=== PATIENT | male | born 1970 | race Caucasian/White ===

== ENCOUNTER 2017-07-13 13:44 | Inpatient (IN) | payer SELFPAY ==
[~2017-07-13] VITALS: Ht 182.9 cm; Wt 104.5 kg
[~2017-07-13 13:44] MED LIST: NAPR500 PO; Z.0.NO CURRENT MEDS
[2017-07-13 14:05] VITALS: BP 131/81; PULSE 82; RESP 18; TEMP 97.9; O2SAT 96
--- NOTE | 2017-07-13 14:09 | PD ---
Physical Exam Date Seen by Provider: Jul 13, 2017 Time Seen by Provider: 14:07 Narrative 46 yo female here for evaluation of leg pain and N/V. Has had "the flu" for a week. Feels weak because of this. Per patient history of testicular cancer. Pain to legs bilaterally. No injuries. Vomiting. Per EVAC report he was forcing himself to vomit. Vitals stable in triage. Awaiting bed placement. Data Data Last Documented VS Vital Signs Date Time Temp Pulse Resp B/P (MAP) Pulse Ox O2 Delivery O2 Flow Rate FiO2 07/13/17 14:05 97.9 82 18 131/81 (98) 96 Room Air [facility] Medical Record Reviewed: Yes Supervised Visit with RAJAT: No Abdulaziz Chopra Jul 13, 2017 14:09
[2017-07-13] MEDS ORDERED: SODIUM CHLOR 0.9% 1000 ML INJ 1,000 ML IV SCH (14:54)
[2017-07-13] MEDS ORDERED: SERT-129 PO (14:59)
[2017-07-13 15:00] VITALS: RESP 17; O2SAT 98
[2017-07-13] MEDS ORDERED: KETOROLAC TROMETHAMINE 30 MG/ML (IVP) VIAL IVP ONE (15:00)
[2017-07-13] MEDS ORDERED: SODIUM CHLORIDE 0.9% FLUSH 10 ML FLUSH IV FLUSH PRN (15:00)
[2017-07-13] MEDS ORDERED: ONDANSETRON HCL 4 MG/2 ML VIAL IVP ONE (15:00)
[2017-07-13 15:07] VITALS: BP 119/78; PULSE 78; RESP 17; TEMP 97.9; O2SAT 99
--- NOTE | 2017-07-13 15:15 | PD ---
HPI Chief Complaint: Pain: Acute or Chronic Time Seen by Provider: 14:51 Travel History International Travel<30 days: No Contact w/Intl Traveler<30days: No Traveled to known affect area: No History of Present Illness HPI 46 yo male here for evaluation of leg pain and N/V. Has had "the flu" for a week. Feels weak because of this. Per patient history of testicular cancer treated with removal of both testicles 817. Patient complaining of generalized Pain to legs bilaterally. No injuries. Vomiting. Per EVAC report he was forcing himself to vomit. Vitals stable in triage. Pain is currently 8 out of 10. He denies abdominal pain at this time but does state nausea, and reports vomiting in the bathroom although this was not witnessed. He denies urinary symptoms. He denies chest pain or shortness of breath. Patient denies IV drug use. He states occasional marijuana use. He has no known drug allergies. PFSH Past Medical History Asthma: Yes (as child) Anxiety: Yes Depression: Yes Cancer: Yes (testicular) Chemotherapy: Yes Diabetes: No Diminished Hearing: No Musculoskeletal: Yes (PREVIOUS BACK INJURY 1994) Psychiatric: Yes Tetanus Vaccination: > 5 Years Influenza Vaccination: No Past Surgical History Genitourinary Surgery: Yes (testicles removed) Social History Alcohol Use: Yes (OCASSIONALLY) Tobacco Use: Yes (2 ppd) Substance Use: No Allergies-Medications (Allergen,Severity, Reaction): Coded Allergies: No Known Allergies (Verified , 07/13/17) Reported Meds & Prescriptions Reported Meds & Active Scripts Active Reported Sertraline (Sertraline HCl) 100 Mg Tab 100 Mg PO DAILY Review of Systems Except as stated in HPI: all other systems reviewed are Neg General / Constitutional: Positive: Fever (last week) Eyes: No: Visual changes HENT: Positive: Lightheadedness, No: Headaches, Vertigo, Sore Throat, Rhinitis , Rhinorrhea, Congestion, Nosebleed, Neck Stiffness, Neck Pain, Dental Difficulties, Earache Cardiovascular: No: Chest Pain or Discomfort Respiratory: No: Cough, Shortness of Breath, Wheezing Gastrointestinal: Positive: Nausea, Vomiting, No: Diarrhea, Abdominal Pain Genitourinary: No: Dysuria Musculoskeletal: Positive: Myalgias, Arthralgias, Pain, No: Limited ROM, Edema Skin: No Rash Neurologic: No: Weakness Psychiatric: No: Depression Endocrine: No: Polydipsia Hematologic/Lymphatic: No: Easy Bruising Physical Exam Narrative GENERAL: Patient appears in moderate distress. SKIN: Warm and dry. Normal color. Somewhat decreased turgor. HEAD: Atraumatic. Normocephalic. EYES: Pupils equal and round. No scleral icterus. No injection or drainage. ENT: No nasal bleeding or discharge. Mucous membranes pink and dry. TMs are clear. Pharynx is clear. Airway is patent. NECK: Trachea midline. Supple and nontender. CARDIOVASCULAR: Regular rate and rhythm. No murmurs gallops or rubs appreciated. RESPIRATORY: No accessory muscle use. Clear to auscultation. Breath sounds equal bilaterally. GASTROINTESTINAL: Abdomen soft, non-tender, nondistended. Hepatic and splenic margins not palpable. MUSCULOSKELETAL: Extremities without clubbing, cyanosis, or edema. No obvious deformities. No edema. No significant increased pain with palpation. Negative straight leg raise pain bilaterally. NEUROLOGICAL: Awake and alert. No obvious cranial nerve deficits. Motor grossly within normal limits. Five out of 5 muscle strength in the arms and legs. Normal speech. PSYCHIATRIC: Appropriate mood and affect; insight and judgment normal. Data Data Last Documented VS Vital Signs Date Time Temp Pulse Resp B/P (MAP) Pulse Ox O2 Delivery O2 Flow Rate FiO2 07/13/17 16:43 97.8 86 16 131/72 (91) 99 Room Air Orders Orders Complete Blood Count With Diff (07/13/17 14:54) Comprehensive Metabolic Panel (07/13/17 14:54) Lactic Acid (07/13/17 14:54) Urinalysis - C+S If Indicated (07/13/17 14:54) Iv Access Insert/Monitor (07/13/17 14:54) Ecg Monitoring (07/13/17 14:54) Oximetry (07/13/17 14:54) NPO (07/13/17 14:54) Ondansetron Inj (Zofran Inj) (07/13/17 15:00) Sodium Chlor 0.9% 1000 Ml Inj (Ns 1000 M (07/13/17 14:54) Sodium Chloride 0.9% Flush (Ns Flush) (07/13/17 15:00) Ketorolac Inj (Toradol Inj) (07/13/17 15:00) Urine Culture (07/13/17 16:00) Lipase (07/13/17 16:27) Potassium Chloride (Kcl) (07/13/17 16:30) Us Abdomen Gallbladder (07/13/17 ) Piperacil-Tazo 4.5 Gm Premix (Zosyn 4.5 (07/13/17 18:15) Hepatitis Profile (07/13/17 18:11) Tylenol (Acetaminophen) (07/13/17 18:11) Labs Laboratory Tests Test 07/13/17 11:20 07/13/17 15:20 07/13/17 16:00 Lipase 148 U/L White Blood Count 4.7 TH/MM3 Red Blood Count 5.02 MIL/MM3 Hemoglobin 16.2 GM/DL Hematocrit 46.6 % Mean Corpuscular Volume 92.8 FL Mean Corpuscular Hemoglobin 32.2 PG Mean Corpuscular Hemoglobin Concent 34.7 % Red Cell Distribution Width 12.7 % Platelet Count 61 TH/MM3 Mean Platelet Volume 9.2 FL CBC Comment AUTO DIFF Differential Total Cells Counted 100 Neutrophils % (Manual) 45 % Band Neutrophils % 39 % Lymphocytes % 3 % Monocytes % 4 % Other Cells % 5 % Neutrophils # (Manual) 4.1 TH/MM3 Metamyelocytes 2 % Promyelocytes 2 % Differential Comment FINAL DIFF MANUAL Toxic Vacuolation PRESENT Platelet Estimate LOW Platelet Morphology Comment NORMAL Blood Urea Nitrogen 13 MG/DL Creatinine 0.85 MG/DL Random Glucose 111 MG/DL Total Protein 6.4 GM/DL Albumin 3.2 GM/DL Calcium Level 8.6 MG/DL Alkaline Phosphatase 158 U/L Aspartate Amino Transf (AST/SGOT) 319 U/L Alanine Aminotransferase (ALT/SGPT) 300 U/L Total Bilirubin 3.5 MG/DL Sodium Level 133 MEQ/L Potassium Level 3.4 MEQ/L Chloride Level 98 MEQ/L Carbon Dioxide Level 24.3 MEQ/L Anion Gap 11 MEQ/L Estimat Glomerular Filtration Rate 97 ML/MIN Lactic Acid Level 1.8 mmol/L Urine Color DARK-BROWN Urine Turbidity HAZY Urine pH 6.0 Urine Specific [place] 1.036 Urine Protein 30 mg/dL Urine Glucose (UA) NEG mg/dL Urine Ketones NEG mg/dL Urine Occult Blood NEG Urine Nitrite NEG Urine Bilirubin MOD Urine Urobilinogen 4.0 MG/DL Urine Leukocyte Esterase TRACE Urine RBC LESS THAN 1 /hpf Urine WBC 8 /hpf Urine Bacteria RARE /hpf Urine Hyaline Casts 4 /lpf Urine Mucus MANY /lpf Microscopic Urinalysis Comment CULTURE INDICATED MDM Medical Decision Making Medical Screen Exam Complete: Yes Emergency Medical Condition: Yes Medical Record Reviewed: Yes Differential Diagnosis Lower extremity pain. Electrolyte imbalance. Leg cramps. Dehydration. Narrative Course Patient is medically stable at time of exam. Labs ordered including CBC, CMP, lactic acid, and urinalysis. IV access is obtained patient is given 30 mg Toradol IV as well as 4 mg Zofran IV. Patient is given 1000 mg normal saline bolus. CBC is unremarkable except for platelets were 61 and 39% bandemia. Chemistry is significant for sodium 133, potassium 3.4, glucose 111, total bilirubin was 3.5, AST is 319, and ALT is 300, alkaline phosphatase is 158, is 3.2, lipase is normal 148. Lactic acid is 1.8. Urinalysis is dark brown and hazy with a specific gravity 1.036, urine protein is 30,, and urine urobilinogen is 4.0. There is a trace of leukocyte esterase, rare bacteria and WBCs are 8 under high-power field. Patient is discussed with Dr. Bejarano who sees the patient as well, who recommends an ultrasound of the gallbladder. Patient is given potassium 20 mEq by mouth. Ultrasound of THE GALLBLADDER SHOWS: GALLBLADDER: Markedly abnormal in appearance with moderately thickened edematous gallbladder wall diffusely. No definite mobile stones. Patient discussed with Dr. Gaxiola who recommends touching base with the general surgeon. Patient discussed with Dr. Mark Saez, who recommends a hepatitis panel which is added, acetaminophen level is also added. Also placed to the hospitalist for admission. Diagnosis Primary Impression: Bandemia Additional Impressions: Elevated LFTs Gall bladder inflammation Admitting Information Admitting Physician Requests: Observation Condition: Stable Heron Maravilla Jul 13, 2017 15:15
[2017-07-13 15:38] LABS: HEMATOCRIT 46.6 % (39.0-51.0); MEAN CELL VOLUME 92.8 FL (80.0-100.0); MEAN CORPUSCULAR HEMOGLOBIN 32.2 PG (27.0-34.0); MEAN CORPUSCULAR HGB CONC 34.7 % (32.0-36.0); PLATELET COUNT 61 TH/MM3 (150-450); RED BLOOD COUNT 5.02 MIL/MM3 (4.50-5.90); RED CELL DISTRIBUTION WIDTH 12.7 % (11.6-17.2); WHITE BLOOD COUNT 4.7 TH/MM3 (4.0-11.0)
[2017-07-13 15:39] LABS: HEMO FLAGS AUTO DIFF
[2017-07-13 16:11] LABS: ALKALINE PHOSPHATASE 158 U/L (45-117); ALT (GPT) 300 U/L (12-78); TOTAL BILIRUBIN ADULT 3.5 MG/DL (0.2-1.0)
[2017-07-13 16:13] LABS: ANION GAP 11 MEQ/L (5-15); AST (GOT) 319 U/L (15-37); BICARBONATE 24.3 MEQ/L (21.0-32.0); BLOOD UREA NITROGEN 13 MG/DL (7-18); CHLORIDE 98 MEQ/L (98-107); GLOMERULAR FILTRATION RATE 97 ML/MIN (>89); POTASSIUM 3.4 MEQ/L (3.5-5.1); SODIUM (NA) 133 MEQ/L (136-145)
[2017-07-13 16:21] LABS: BACTERIA, URINE RARE /hpf; BLOOD, URINE NEG (NEG); COMMENT (UR) CULTURE INDICATED; CULTURE IF INDICATED CULTURE INDICATED; GLUCOSE,URINE NEG (NEG); HYALINE CAST, URINE 4 /lpf (RARE); KETONE, URINE NEG (NEG); MUCUS URINE MANY /lpf (OCC); NITRITE,URINE NEG (NEG)
[2017-07-13 16:24] LABS: URINE COLOR DARK-BROWN (YELLW/STRAW)
[2017-07-13] MEDS ORDERED: POTASSIUM CHLORIDE 20 MEQ CONTROLLED RELEASE TAB PO ONE (16:30)
[2017-07-13 16:43] VITALS: BP 131/72; PULSE 86; RESP 16; TEMP 97.8; O2SAT 99
[2017-07-13 16:46] LABS: BANDS 39 % (0-6); METAMYELOCYTES 2 % (0-1); NEUTROPHIL # MANUAL DIFF 4.1 TH/MM3 (1.8-7.7); POLYS (SEG NEUTROPHILS) 45 % (16-70); PROMYELOCYTES 2 % (0-0); SCAN/DIFF FINAL DIFF MANUAL; WBC DIFF SAMPLE 100
[2017-07-13 16:48] LABS: PLATELET ESTIMATE SMEAR LOW (NORMAL); PLATELET MORPHOLOGY NORMAL (NORMAL)
[2017-07-13 16:54] LABS: TOXIC VACUOLATION PRESENT (NONE SEEN)
--- NOTE | 2017-07-13 17:31 | RADRPT ---
EXAM DATE/TIME: 07/13/2017 16:55 [facility] COMPARISON: No previous studies available for comparison. INDICATIONS : Nausea/Vomiting. MEDICAL HISTORY : Asthma. Anxiety. Depression. Testicular cancer. Chemotherapy. SURGICAL HISTORY : Testicles removed. Right femur fracture/pinned. ENCOUNTER: Initial ACUITY: 4-6 days PAIN SCORE: 6/10 LOCATION: Right upper quadrant MEASUREMENTS: LIVER: 19.2 cm length COMMON DUCT: 4 mm RIGHT KIDNEY: 11.6 x 4.7 x 4.7 cm FINDINGS: LIVER: Normal echotexture without focal lesion or ductal dilatation. COMMON DUCT: No intraluminal mass or stone visualized. GALLBLADDER: Markedly abnormal in appearance with moderately thickened edematous gallbladder wall diffusely. No de finite mobile stones. PANCREAS: The visualized portions are within normal limits. RIGHT KIDNEY: No evidence of hydronephrosis, stone, or mass. CONCLUSION: Markedly abnormal gallbladder appearance. Hayden Garcia MD on July 13, 2017 at 17:26 Board Certified Radiologist. This report was verified electronically.
[2017-07-13] MEDS ORDERED: PIPERACIL-TAZO 4.5 GM PREMIX 100 ML IV ONE (18:15)
[2017-07-13] MEDS ORDERED: GADODIAMIDE PF 287 MG/ML 20 ML VIAL (for RAD MRI) IV PUSH ONE (18:24)
[2017-07-13 19:58] VITALS: BP 124/80; PULSE 70; RESP 16; O2SAT 98
[2017-07-13] MEDS ORDERED: NALOXONE HCL 0.4 MG/ML AMP IV PUSH PRN (20:15)
--- NOTE | 2017-07-13 21:36 | HHI.HP ---
[facility] Admission Diagnosis Bandemia/Elevated LFT's/Inflammed Gallbladder Diagnoses: (1) Cholecystitis (2) Elevated LFTs (3) Bandemia Chief Complaint: Leg pain Travel History International Travel<30 Days: No Contact w/Intl Traveler <30 Da: No Traveled to Known Affected Are: No History of Present Illness Written by Joyce Lam, acting as scribe for Dr. Hercules on 07/13/17 at 21:36. The patient is seen in the CDU. He states that he came into the ED for evaluation of severe bilateral lower extremity pain: pain goes from knees down bones and into ankles. The patient reports pain has been present since Tuesday. He denies any trauma. Chills, cold, diaphoretic started Tuesday and was present on ambulance. Denies any measured temperatures. Nausea with vomiting 10 - 12 times per day since Tuesday. Denies black colored emesis. He reports red emesis. Diarrhea started 3 days ago - black in color. Denies taking blood thinners or aspirin. He says he took Advil PM last night only. He has also been treating himself with Nyquil. Denies dysuria. He reports dark tea-colored urine. Patient states he's been having right upper abdominal pain. Denies chest pain, shortness of breath, or dizziness. Review of Systems Except as stated in HPI: all other systems reviewed are Neg Past Family Social History Past Medical History Hepatitis - he is not sure if it's B or C Testicular CA - both testicles removed age 17 y/o Depression Denies hypertension, DM, CAD, CHF, kidney disease, DVT, PE, CVA, seizures, thyroid problems Past Surgical History Testicle removed age 17, 2 months later, the other testicle was removed . Reported Medications Sertraline 100 mg qday for depression - has been taking for 4 years . Allergies: Coded Allergies: No Known Allergies (Verified , 07/13/17) Active Ordered Medications Current Medications Ondansetron HCl (Zofran Inj) 4 mg ONCE ONCE IVP Last administered on 15:09; Start 07/13/17 at 15:00; Stop 07/13/17 at 15:01; Status DC Sodium Chloride 1,000 ml @ 1,000 mls/hr Q1H IV Last administered on 07/13/17 15:09; Start 07/13/17 at 14:54; Stop 07/13/17 at 15:53; Status DC Sodium Chloride (NS Flush) 2 ml UNSCH PRN IV FLUSH FLUSH AFTER USING IV ACCESS Last administered on 07/13/17 15:08; Start 07/13/17 at 15:00 Ketorolac Tromethamine (Toradol Inj) 30 mg ONCE ONCE IVP Last administered on 07/13/17 15:08; Start 07/13/17 at 15:00; Stop 07/13/17 at 15:01; Status DC Potassium Chloride (KCl) 20 meq ONCE ONCE PO Last administered on 07/13/17 16 :40; Start 07/13/17 at 16:30; Stop 07/13/17 at 16:31; Status DC Piperacillin Sod/ Tazobactam Sod 100 ml @ 200 mls/hr ONCE ONCE IV Last administered on 07/13/17 18:10; Start 07/13/17 at 18:15; Stop 07/13/17 at 18:44 ; Status DC Naloxone HCl (Narcan Inj) 0.4 mg UNSCH PRN IV PUSH SEE LABEL COMMENTS; Start 07/13/17 at 20:15 Piperacillin Sod/ Tazobactam Sod 100 ml @ 200 mls/hr Q6H IV ; Start 07/14/17 at 00:00 . Family History Cancer - cousin with leukemia, testicular Maternal GM with breast CA . Social History Tobacco: 1 PPD Alcohol: occasional Illicit Drugs: marijuana on occasion . Physical Exam Vital Signs Vital Signs Date Time Temp Pulse Resp B/P (MAP) Pulse Ox O2 Delivery O2 Flow Rate FiO2 07/13/17 20:50 07/13/17 19:58 70 16 124/80 (95) 98 Room Air 07/13/17 16:43 97.8 86 16 131/72 (91) 99 Room Air 07/13/17 16:08 17 07/13/17 15:07 97.9 78 17 119/78 (92) 99 07/13/17 15:00 17 98 Room Air 07/13/17 15:00 86 17 07/13/17 14:05 97.9 82 18 131/81 (98) 96 Room Air Physical Exam GENERAL: This is a jaundiced male patient, in no apparent distress. SKIN: No rashes. Cool and dry. Patient jaundiced. HEAD: Atraumatic. Normocephalic. EYES: No scleral icterus. No injection or drainage. ENT: Nose without bleeding, purulent drainage. Airway patent. NECK: Trachea midline. No JVD. CARDIOVASCULAR: Regular rate and rhythm without murmurs, gallops, or rubs. RESPIRATORY: Clear to auscultation. Breath sounds equal bilaterally. No wheezes , rales, or rhonchi. GASTROINTESTINAL: Abdomen soft, tender right upper quadrant, nondistended. No guarding. MUSCULOSKELETAL: Extremities without clubbing, cyanosis, or edema. No calf tenderness. NEUROLOGICAL: Awake and alert. Motor and sensory grossly within normal limits. Normal speech. . Laboratory Laboratory Tests Test 07/13/17 11:20 07/13/17 15:20 07/13/17 16:00 Lipase 148 White Blood Count 4.7 Red Blood Count 5.02 Hemoglobin 16.2 Hematocrit 46.6 Mean Corpuscular Volume 92.8 Mean Corpuscular Hemoglobin 32.2 Mean Corpuscular Hemoglobin Concent 34.7 Red Cell Distribution Width 12.7 Platelet Count 61 Mean Platelet Volume 9.2 CBC Comment AUTO DIFF Differential Total Cells Counted 100 Neutrophils % (Manual) 45 Band Neutrophils % 39 Lymphocytes % 3 Monocytes % 4 Other Cells % 5 Neutrophils # (Manual) 4.1 Metamyelocytes 2 Promyelocytes 2 Differential Comment FINAL DIFF MANUAL Toxic Vacuolation PRESENT Platelet Estimate LOW Platelet Morphology Comment NORMAL Blood Urea Nitrogen 13 Creatinine 0.85 Random Glucose 111 Total Protein 6.4 Albumin 3.2 Calcium Level 8.6 Alkaline Phosphatase 158 Aspartate Amino Transf (AST/SGOT) 319 Alanine Aminotransferase (ALT/SGPT) 300 Total Bilirubin 3.5 Sodium Level 133 Potassium Level 3.4 Chloride Level 98 Carbon Dioxide Level 24.3 Anion Gap 11 Estimat Glomerular Filtration Rate 97 Lactic Acid Level 1.8 Acetaminophen Level 4.6 Urine Color DARK-BROWN Urine Turbidity HAZY Urine pH 6.0 Urine Specific [place] 1.036 Urine Protein 30 Urine Glucose (UA) NEG Urine Ketones NEG Urine Occult Blood NEG Urine Nitrite NEG Urine Bilirubin MOD Urine Urobilinogen 4.0 Urine Leukocyte Esterase TRACE Urine RBC LESS THAN 1 Urine WBC 8 Urine Bacteria RARE Urine Hyaline Casts 4 Urine Mucus MANY Microscopic Urinalysis Comment CULTURE INDICATED Date/Time Source Procedure Growth Status 07/13/17 16:00 Urine Clean Catch Urine Culture Pending Worksheet Result Diagram: 07/13/17 1520 07/13/17 1520 Imaging Gallbladder ultrasound: markedly abnormal gallbladder appearance with moderately thickened diffusely edematous gallbladder wall. No definite mobile stones. Caprini VTE Risk Assessment Caprini VTE Risk Assessment: Mod/High Risk (score >= 2) Caprini Risk Assessment Model Point Value = 1 Point Value = 2 Point Value = 3 Point Value = 5 Age 41-60 Minor surgery BMI > 25 kg/m2 Swollen legs Varicose veins or History of unexplained or recurrent spontaneous Oral contraceptives or hormone replacement Sepsis (< 1 month) Serious lung disease, including pneumonia (< 1 month) Abnormal pulmonary function Acute myocardial infarction Congestive heart failure (< 1 month) History of inflammatory bowel disease Medical patient at bed rest Age 61-74 Arthroscopic surgery Major open surgery (> 45 min) Laparoscopic surgery (> 45 min) Malignancy Confined to bed (> 72 hours) Immobilizing plaster cast Central venous access Age >= 75 History of VTE Family history of VTE Factor V Leiden Prothrombin [id number] Lupus anticoagulant Anticardiolipin antibodies Elevated serum homocysteine Heparin-induced thrombocytopenia Other congenital or acquired thrombophilia Stroke (< 1 month) Elective arthroplasty Hip, pelvis, or leg fracture Acute spinal cord injury (< 1 month) Prophylaxis Regimen Total Risk Factor Score Risk Level Prophylaxis Regimen 0-1 Low Early ambulation 2 Moderate Order ONE of the following: *Sequential Compression Device (SCD) *Heparin 5000 units SQ BID 3-4 Higher Order ONE of the following medications: *Heparin 5000 units SQ TID *Enoxaparin/Lovenox 40 mg SQ daily (WT < 150 kg, CrCl > 30 mL/min) *Enoxaparin/Lovenox 30 mg SQ daily (WT < 150 kg, CrCl > 10-29 mL/min) *Enoxaparin/Lovenox 30 mg SQ BID (WT < 150 kg, CrCl > 30 mL/min) AND/OR *Sequential Compression Device (SCD) 5 or more Highest Order ONE of the following medications: *Heparin 5000 units SQ TID (Preferred with Epidurals) *Enoxaparin/Lovenox 40 mg SQ daily (WT < 150 kg, CrCl > 30 mL/min) *Enoxaparin/Lovenox 30 mg SQ daily (WT < 150 kg, CrCl > 10-29 mL/min) *Enoxaparin/Lovenox 30 mg SQ BID (WT < 150 kg, CrCl > 30 mL/min) AND *Sequential Compression Device (SCD) Assessment and Plan Problem List: (1) Cholecystitis ICD Code: K81.9 - Cholecystitis, unspecified (2) Elevated LFTs ICD Code: R79.89 - Other specified abnormal findings of blood chemistry Status: Acute (3) Upper GI bleed ICD Code: K92.2 - Gastrointestinal hemorrhage, unspecified (4) Bandemia ICD Code: D72.825 - Bandemia Status: Acute (5) UTI (urinary tract infection) ICD Code: N39.0 - Urinary tract infection, site not specified (6) Thrombocytopenia ICD Code: D69.6 - Thrombocytopenia, unspecified (7) Hypokalemia ICD Code: E87.6 - Hypokalemia (8) Hyponatremia ICD Code: E87.1 - Hypo-osmolality and hyponatremia (9) Lower extremity pain, anterior ICD Code: M79.606 - Pain in leg, unspecified (10) Depression ICD Code: F32.9 - Major depressive disorder, single episode, unspecified Status: Chronic (11) Tobacco abuse ICD Code: Z72.0 - Tobacco use Assessment and Plan 46 y/o male who presented to ED on 07/13/17 for evaluation of leg pain and was found to have symptoms and imaging c/w cholecystitis. Cholecystitis - suspected Elevated LFTs - low acetaminophen level on admission - Gallbladder ultrasound: markedly abnormal gallbladder appearance with moderately thickened diffusely edematous gallbladder wall. No definite mobile stones. - general surgery consultation - Hydromorphone 0.2 mg IV q4h PRN pain - Zofran 4 mg IV q6h PRN nausea - NPO after midnight for surgery; may have ice chips this evening; discussed with nursing Possible upper GI bleeding with N/V - patient reports red emesis and black stool - consult gastroenterology - also patient may have liver cirrhosis - has history of hepatitis; platelet count 61,000 on admission - Protonix 40 mg IV q12h - will repeat H&H at midnight and CBC in a.m. to trend for blood loss UTI, possible Bandemia - more likely related to cholecystitis - UA suspicious for UTI - Antibiotics: Zosyn 4.5 grams q6h IV to cover both gall bladder and UTI as possible infection sources - await culture results and adjust antibiotics as indicated Thrombocytopenia - history of hepatitis and possible liver cirrhosis - suspect may be secondary to liver disease - Platelet count 61,000 on admission - have asked GI to evaluate for possible cirrhosis - repeat CBC in a.m. and follow results Hypokalemia - K+ 3.4 - potassium replaced - recheck BMP in a.m. - follow K+ results Hyponatremia - Na+ 133 on admission - replaced with NS at 125 cc/hr - recheck BMP in a.m. - follow Na+ results Lower extremity pain, bilateral - suspect patient may have some degree of PAD - recommend follow up with PCP and EMMANUEL as an outpatient Depression - resume home Sertraline Tobacco abuse - counselled extensively regarding cessation and detrimental health effects from smoking - patient receptive to counseling DVT prophylaxis - SCDs/TEDs . This note was transcribed by johana [Joyce Lam]. I, Dr. Clarissa Hercules personally performed the history, physical exam, and medical decision making; and confirmed the accuracy of the information in the transcribed note. Authenticated by Dr. Clarissa Hercules on07/13/17 at 21:36. Discussed Condition With ER physician, patient, RN . Joyce Lam Jul 13, 2017 21:36 Clarissa Hercules MD Jul 19, 2017 23:21
[2017-07-13] MEDS ORDERED: ONDANSETRON HCL 4 MG/2 ML VIAL IV PUSH PRN (21:45)
[2017-07-13] MEDS: SODIUM CHLOR 0.9% 1000 ML INJ 1,000 ML IV SCH (22:00)
[2017-07-13] MEDS: PIPERACIL-TAZO 4.5 GM PREMIX 100 ML IV SCH (23:09)
[2017-07-13] MEDS: PANTOPRAZOLE SODIUM 40 MG VIAL IV PUSH SCH (23:09)
[2017-07-13] MEDS: HYDROmorphone HCL PF 1 MG/ML VIAL IV PUSH PRN (23:09)
[2017-07-14] VITALS (7 sets, daily range): BP systolic 108–128; BP diastolic 60–83; PULSE 61–76; RESP 18–20; TEMP 97.8–99.2; O2SAT 93–98
[2017-07-14 00:43] LABS: HEMATOCRIT 42.3 % (39.0-51.0)
[2017-07-14 00:44] LABS: REVIEW FLAG FINAL
[2017-07-14] MEDS: HYDROmorphone HCL PF 1 MG/ML VIAL IV PUSH PRN ×3 (04:53→18:10)
[2017-07-14] MEDS: PIPERACIL-TAZO 4.5 GM PREMIX 100 ML IV SCH ×3 (04:53→17:11)
--- NOTE | 2017-07-14 08:08 | PD.CONS ---
HPI History of Present Illness This is a 46 year old male patient who presented to the ER for "flu-like symptoms." He states that his symptoms began Jose and consisted of chills, nausea, vomiting, diaphoresis, and severe body aches. He has not been able to tolerate po and would almost immediately vomit- even water. He denies any actual fevers. He also has a pain in his RUQ, an intermittent sharp pain. There is no radiation. The pain is not related to food intake. He states that it seems to be more related to being outside in the heat or riding his bike. He reports that he did not have a bowel movement for 2 days, but then started having diarrhea 3-4 liquid stools per day. He reports that his urine is extremely dark, but he just noticed it when he came to the hospital. He reports that he has Hepatitis, he thinks hepatitis B, but is unsure. He states he went to donate blood about a year ago and received a letter saying he was positive for hepatitis B. He drinks ETOH occasionally. He denies any new medications. He denies any family hx of liver disease. No new tattoos, no new sexual partners. (Eli Wilkinson) PFSH Past Medical History Hepatitis, believes Hepatitis B Testicular CA - both testicles removed age 17 y/o Depression Past Surgical History Testicle removed age 17, 2 months later, the other testicle was removed Right femur ORIF and removal of hardware (Eli Wilkinson) Coded Allergies: No Known Allergies (Verified , 07/13/17) Medications Allergies Coded Allergies Type Severity Reaction Last Updated Verified No Known Allergies 07/13/17 Yes Active Scripts Medications Dose Route/Sig Max Daily Dose Days Date Category Sertraline (Sertraline HCl) 100 Mg Tab 100 Mg PO DAILY 07/13/17 Reported Family History Cousin with leukemia, testicular Maternal GM with breast CA Social History Tobacco: 1 PPD x 25 years Alcohol: occasional Illicit Drugs: marijuana on occasion (Eli Wilkinson) Review of Systems Constitutional: COMPLAINS OF: Diaphoretic episodes, Fatigue, Weight loss ( since Tuesday), Chills, DENIES: Fever Respiratory: DENIES: Cough, Shortness of breath Cardiovascular: DENIES: Chest pain Gastrointestinal: COMPLAINS OF: Abdominal pain, Diarrhea, Nausea, Vomiting, Swelling of Abdomen, Heartburn, DENIES: Black stools, Bloody stools, Constipation Musculoskeletal: COMPLAINS OF: Joint pain, Muscle aches Integumentary: DENIES: Pruritus, Jaundice Hematologic/lymphatic: DENIES: Bruising Neurologic: DENIES: Headache Psychiatric: DENIES: Confusion (Eli Wilkinson TEQUILA) GI Exam Vitals I&O Vital Signs Date Time Temp Pulse Resp B/P (MAP) Pulse Ox O2 Delivery O2 Flow Rate FiO2 07/14/17 07:46 99.2 62 20 108/69 (82) 94 07/14/17 06:16 18 07/14/17 04:00 99.2 62 20 121/79 (93) 95 07/14/17 00:00 98.8 76 20 120/77 (91) 94 07/13/17 20:50 07/13/17 19:58 70 16 124/80 (95) 98 Room Air 07/13/17 16:43 97.8 86 16 131/72 (91) 99 Room Air 07/13/17 16:08 17 07/13/17 15:07 97.9 78 17 119/78 (92) 99 07/13/17 15:00 17 98 Room Air 07/13/17 15:00 86 17 07/13/17 14:05 97.9 82 18 131/81 (98) 96 Room Air I/O 07/13/17 07/13/17 07/13/17 07/14/17 07/14/17 07/14/17 07:00 15:00 23:00 07:00 15:00 23:00 Intake Total 1340 ml 120 ml Output Total 400 ml 380 ml Balance 940 ml -260 ml Intake Oral 240 ml 120 ml IV Total 1100 ml Output Urine Total 400 ml 380 ml # Voids 1 # Bowel Movements 0 0 Imaging Last Impressions Gall Bladder Ultrasound 07/13/17 0000 Signed Impressions: Service Date/Time: Thursday, July 13, 2017 16:55 - CONCLUSION: Markedly abnormal gallbladder appearance. Hayden Garcia MD Laboratory Test 07/13/17 11:20 07/13/17 15:20 07/13/17 16:00 07/14/17 00:23 Lipase 148 U/L White Blood Count 4.7 TH/MM3 Red Blood Count 5.02 MIL/MM3 Hemoglobin 16.2 GM/DL 14.9 GM/DL Hematocrit 46.6 % 42.3 % Mean Corpuscular Volume 92.8 FL Mean Corpuscular Hemoglobin 32.2 PG Mean Corpuscular Hemoglobin Concent 34.7 % Red Cell Distribution Width 12.7 % Platelet Count 61 TH/MM3 Mean Platelet Volume 9.2 FL CBC Comment AUTO DIFF Differential Total Cells Counted 100 Neutrophils % (Manual) 45 % Band Neutrophils % 39 % Lymphocytes % 3 % Monocytes % 4 % Other Cells % 5 % Neutrophils # (Manual) 4.1 TH/MM3 Metamyelocytes 2 % Promyelocytes 2 % Differential Comment FINAL DIFF MANUAL Toxic Vacuolation PRESENT Platelet Estimate LOW Platelet Morphology Comment NORMAL Blood Urea Nitrogen 13 MG/DL Creatinine 0.85 MG/DL Random Glucose 111 MG/DL Total Protein 6.4 GM/DL Albumin 3.2 GM/DL Calcium Level 8.6 MG/DL Alkaline Phosphatase 158 U/L Aspartate Amino Transf (AST/SGOT) 319 U/L Alanine Aminotransferase (ALT/SGPT) 300 U/L Total Bilirubin 3.5 MG/DL Sodium Level 133 MEQ/L Potassium Level 3.4 MEQ/L Chloride Level 98 MEQ/L Carbon Dioxide Level 24.3 MEQ/L Anion Gap 11 MEQ/L Estimat Glomerular Filtration Rate 97 ML/MIN Lactic Acid Level 1.8 mmol/L Acetaminophen Level 4.6 MCG/ML Urine Color DARK-BROWN Urine Turbidity HAZY Urine pH 6.0 Urine Specific [place] 1.036 Urine Protein 30 mg/dL Urine Glucose (UA) NEG mg/dL Urine Ketones NEG mg/dL Urine Occult Blood NEG Urine Nitrite NEG Urine Bilirubin MOD Urine Urobilinogen 4.0 MG/DL Urine Leukocyte Esterase TRACE Urine RBC LESS THAN 1 /hpf Urine WBC 8 /hpf Urine Bacteria RARE /hpf Urine Hyaline Casts 4 /lpf Urine Mucus MANY /lpf Microscopic Urinalysis Comment CULTURE INDICATED Test 07/14/17 06:18 Date/Time Source Procedure Growth Status 07/13/17 16:00 Urine Clean Catch Urine Culture Pending Worksheet Physical Examination HEENT: Normocephalic; atraumatic; + jaundice. CHEST: CTA CARDIAC: RRR ABDOMEN: Soft, nondistended, moderate RUQ tenderness; no hepatosplenomegaly; bowel sounds are present in all four quadrants. EXTREMITIES: No clubbing, cyanosis, or edema. SKIN: + Jaundice. fine red rash to trunk [employer]: No focal deficits; alert and oriented times three. (Eli Wilkinson) Assessment and Plan Plan ASSESSMENT: - Elevated LFTs, ? Acute hepatitis. 6 day hx of chills, diaphoresis, malaise, RUQ pain, nausea, vomiting, diarrhea. Pt does report history of hepatitis, he believes hepatitis b, but is unsure. His symptoms are more consistent with a acute viral hepatitis though. Denies new meds, new tattoos, new sexual partners. US abdominal (07/13/17)----> Markedly abnormal in appearance with moderately thickened edematous gallbladder wall diffusely. No definite mobile stones. Unclear if this is related to GB etiology or hepatocellular dz. - N/V/D, will get stool studies. - Abnormal imaging of Gallbladder. US as above. RUQ tenderness. GB etiology vs. hepatocellular dz. - RUQ tenderness. Unclear if it is related to GB or hepatitis. - Bandemia, Chills. Abn. U/A, cx pending. Fine spotted red rash to trunk. Zosyn. - Thrombocytopenia. Plt 65,000. - Abn. U/A, Cx pending. PLAN: - Clear liquids - Hepatitis profile - Hepatitis B DNA, Hep B surface ag (in acute hep profile), Hep Be Ag, - AFP level - VALERIE, ASMA, AMA - Ceruloplasmin, Alpha 1 Antitrypsin - Ferritin, Iron saturation - Toxicology panel - PT/INR today - Stool studies - CBC, CMP, PT/INR in am - Supportive care - Further recommendations to follow based on results of above - Pt seen and examined by Dr. Burns and myself and this note is written on his behalf (Eli Wilkinson) Physician Comments seen, examined agree with above mrcp most likely cholecystitis -appreciated surgical input (Alanna Burns MD) Eli Wilkinson Jul 14, 2017 08:08 Alanna Burns MD Jul 14, 2017 20:16
[2017-07-14 08:10] LABS: HEMATOCRIT 41.9 % (39.0-51.0); MEAN CELL VOLUME 94.2 FL (80.0-100.0); MEAN CORPUSCULAR HEMOGLOBIN 32.9 PG (27.0-34.0); MEAN CORPUSCULAR HGB CONC 34.9 % (32.0-36.0); PLATELET COUNT 65 TH/MM3 (150-450); RED BLOOD COUNT 4.45 MIL/MM3 (4.50-5.90); RED CELL DISTRIBUTION WIDTH 12.6 % (11.6-17.2); WHITE BLOOD COUNT 4.7 TH/MM3 (4.0-11.0)
[2017-07-14 08:22] LABS: HEMO FLAGS AUTO DIFF
[2017-07-14 08:31] LABS: ALKALINE PHOSPHATASE 153 U/L (45-117); ALT (GPT) 223 U/L (12-78); ANION GAP 8 MEQ/L (5-15); AST (GOT) 224 U/L (15-37); BLOOD UREA NITROGEN 13 MG/DL (7-18); CHLORIDE 99 MEQ/L (98-107); GLOMERULAR FILTRATION RATE 116 ML/MIN (>89); POTASSIUM 3.7 MEQ/L (3.5-5.1); SODIUM (NA) 132 MEQ/L (136-145); TOTAL BILIRUBIN ADULT 3.6 MG/DL (0.2-1.0)
[2017-07-14] MEDS: SERTRALINE HCL 100 MG TAB PO SCH (08:33)
[2017-07-14] MEDS: SODIUM CHLOR 0.9% 1000 ML INJ 1,000 ML IV SCH ×3 (08:40→17:11)
[2017-07-14] MEDS ORDERED: PNEUMOCOCCAL POLYVALENT INJ 25 MCG/0.5 ML SYR IM ONE (10:00)
[2017-07-14] MEDS ORDERED: INFLUENZA VIRUS VACCINE (QUADRIVALENT) 0.5 ML SYR IM ONE (10:00)
[2017-07-14 10:18] LABS: BANDS 35 % (0-6); METAMYELOCYTES 2 % (0-1); NEUTROPHIL # MANUAL DIFF 3.3 TH/MM3 (1.8-7.7); PLATELET ESTIMATE SMEAR LOW (NORMAL); PLATELET MORPHOLOGY NORMAL (NORMAL); POLYS (SEG NEUTROPHILS) 34 % (16-70); SCAN/DIFF FINAL DIFF MANUAL; WBC DIFF SAMPLE 100
[2017-07-14] MEDS: PANTOPRAZOLE SODIUM 40 MG VIAL IV PUSH SCH (11:41)
--- NOTE | 2017-07-14 11:53 | PD.CONS ---
cc: Mark Saez MD HPI Service General Surgery Consult Requested By Joyce MANDEL Reason for Consult Elevated liver enzymes Primary Care Physician No Primary Care Physician History of Present Illness This is a 46-year-old male with a past medical history of testicular cancer who presents to the emergency room after having approximate 4-5 days of nausea, vomiting, chills, fevers, right upper quadrant pain and inability to tolerate anything by mouth. He does not report association of the pain with food. He donated blood about a year ago and received notification that he was positive for hepatitis B. An ultrasound of the gallbladder was obtained which showed gallbladder thickening without stones. His white blood cell count is normal. The patient has elevated liver enzymes including total bilirubin at 3.6 and elevated AST, ALT and alkaline phosphatase. A General Surgery consultation has been requested for evaluation of gallbladder with elevated liver enzymes. Review of Systems Constitutional: COMPLAINS OF: Fatigue, Chills, Change in appetite, DENIES: Dizziness Endocrine: DENIES: Polydipsia, Polyuria, Polyphagia Eyes: DENIES: Diplopia Ears, nose, mouth, throat: DENIES: Hearing loss Respiratory: DENIES: Cough, Snoring Cardiovascular: DENIES: Palpitations Gastrointestinal: COMPLAINS OF: Abdominal pain, Nausea, Vomiting Genitourinary: DENIES: Urinary incontinence Musculoskeletal: DENIES: Joint pain Integumentary: DENIES: Abnormal pigmentation Hematologic/lymphatic: DENIES: Bruising Immunologic/allergic: DENIES: Eczema Neurologic: DENIES: Headache, Localized weakness Psychiatric: DENIES: Confusion, Mood changes, Depression Past Family Social History Past Medical History Testicular cancer Hepatitis B Past Surgical History Bilateral testicle removal at age 17 Reported Medications Sertraline Allergies: Coded Allergies: No Known Allergies (Verified , 07/13/17) Active Ordered Medications Current Medications Medications (Trade) Dose Ordered Sig/Aniyah Route Start Time Stop Time Status Last Admin (NS Flush) 2 ml UNSCH PRN IV FLUSH 07/13/17 15:00 07/13/17 15:08 (Narcan Inj) 0.4 mg UNSCH PRN IV PUSH 07/13/17 20:15 Piperacillin Sod/ Tazobactam Sod 100 ml @ 200 mls/hr Q6H IV 07/14/17 00:00 07/14/17 04:53 (Zoloft) 100 mg DAILY PO 07/14/17 09:00 07/14/17 08:33 Sodium Chloride 1,000 ml @ 125 mls/hr Q8H IV 07/13/17 22:00 07/14/17 08:40 (Dilaudid Pf Inj) 0.2 mg Q4H PRN IV PUSH 07/13/17 21:45 07/14/17 10:11 (Zofran Inj) 4 mg Q6H PRN IV PUSH 07/13/17 21:45 (Protonix Inj) 40 mg Q12H IV PUSH 07/13/17 23:00 07/14/17 11:41 Family History Grandmother with breast cancer Cousin with leukemia Social History Positive tobacco use Occasional EtOH use; socially not daily Denies IVDA Physical Exam Vital Signs Vital Signs Date Time Temp Pulse Resp B/P (MAP) Pulse Ox O2 Delivery O2 Flow Rate FiO2 07/14/17 11:16 98.0 70 18 112/72 (85) 93 07/14/17 07:46 99.2 62 20 108/69 (82) 94 07/14/17 06:16 18 07/14/17 04:00 99.2 62 20 121/79 (93) 95 07/14/17 00:00 98.8 76 20 120/77 (91) 94 07/13/17 20:50 07/13/17 19:58 70 16 124/80 (95) 98 Room Air 07/13/17 16:43 97.8 86 16 131/72 (91) 99 Room Air 07/13/17 16:08 17 07/13/17 15:07 97.9 78 17 119/78 (92) 99 07/13/17 15:00 17 98 Room Air 07/13/17 15:00 86 17 07/13/17 14:05 97.9 82 18 131/81 (98) 96 Room Air Physical Exam GENERAL: Pleasant 46 year old male resting in bed in no acute distress. SKIN: Warm and dry. HEAD: Atraumatic. Normocephalic. EYES: Pupils equal and round. No scleral icterus. No injection or drainage. ENT: No nasal bleeding or discharge. Mucous membranes pink and moist. NECK: Trachea midline. CARDIOVASCULAR: Regular rate and rhythm. RESPIRATORY: No accessory muscle use. Clear to auscultation. Breath sounds equal bilaterally. GASTROINTESTINAL: Abdomen soft, non distended. Moderately RUQ pain with palpation; no visible scars on abdomen. MUSCULOSKELETAL: Extremities without clubbing, cyanosis, or edema. No obvious deformities. NEUROLOGICAL: Awake and alert. No obvious cranial nerve deficits. Motor grossly within normal limits. Five out of 5 muscle strength in the arms and legs. Normal speech. PSYCHIATRIC: Appropriate mood and affect; insight and judgment normal. Laboratory Laboratory Tests Test 07/13/17 15:20 07/13/17 16:00 07/14/17 00:23 07/14/17 06:18 White Blood Count 4.7 4.7 Red Blood Count 5.02 4.45 Hemoglobin 16.2 14.9 14.6 Hematocrit 46.6 42.3 41.9 Mean Corpuscular Volume 92.8 94.2 Mean Corpuscular Hemoglobin 32.2 32.9 Mean Corpuscular Hemoglobin Concent 34.7 34.9 Red Cell Distribution Width 12.7 12.6 Platelet Count 61 65 Mean Platelet Volume 9.2 10.3 CBC Comment AUTO DIFF AUTO DIFF Differential Total Cells Counted 100 100 Neutrophils % (Manual) 45 34 Band Neutrophils % 39 35 Lymphocytes % 3 18 Monocytes % 4 11 Other Cells % 5 Neutrophils # (Manual) 4.1 3.3 Metamyelocytes 2 2 Promyelocytes 2 Differential Comment FINAL DIFF MANUAL FINAL DIFF MANUAL Toxic Vacuolation PRESENT Platelet Estimate LOW LOW Platelet Morphology Comment NORMAL NORMAL Blood Urea Nitrogen 13 13 Creatinine 0.85 0.73 Random Glucose 111 88 Total Protein 6.4 5.4 Albumin 3.2 2.6 Calcium Level 8.6 7.7 Alkaline Phosphatase 158 153 Aspartate Amino Transf (AST/SGOT) 319 224 Alanine Aminotransferase (ALT/SGPT) 300 223 Total Bilirubin 3.5 3.6 Sodium Level 133 132 Potassium Level 3.4 3.7 Chloride Level 98 99 Carbon Dioxide Level 24.3 25.0 Anion Gap 11 8 Estimat Glomerular Filtration Rate 97 116 Lactic Acid Level 1.8 Acetaminophen Level 4.6 Urine Color DARK-BROWN Urine Turbidity HAZY Urine pH 6.0 Urine Specific [place] 1.036 Urine Protein 30 Urine Glucose (UA) NEG Urine Ketones NEG Urine Occult Blood NEG Urine Nitrite NEG Urine Bilirubin MOD Urine Urobilinogen 4.0 Urine Leukocyte Esterase TRACE Urine RBC LESS THAN 1 Urine WBC 8 Urine Bacteria RARE Urine Hyaline Casts 4 Urine Mucus MANY Microscopic Urinalysis Comment CULTURE INDICATED Date/Time Source Procedure Growth Status 07/13/17 16:00 Urine Clean Catch Urine Culture Pending Worksheet Imaging Last 48 hours Impressions Gall Bladder Ultrasound 07/13/17 0000 Signed Impressions: Service Date/Time: Thursday, July 13, 2017 16:55 - CONCLUSION: Markedly abnormal gallbladder appearance. Hayden Garcia MD Assessment and Plan Assessment and Plan 46 year old male with elevated liver enzymes; RUQ pain -GI consult--- hepatitis panel pending -Liver enzymes remain elevated -Diet as tolerated -Unclear at this time if this is gallbladder related but will continue to follow -Thank you for this consult; We will continue to follow Discussed Condition With Dr. Se Chopra Attending Statement patient seen at bedside right sided pain may be liver or gb etiology will obtain gi recs await hep panel pt may benefit from hida if bili improves Attestation The exam, history, and the medical decision-making described in the above note were completed with the assistance of the mid-level provider. I reviewed and agree with the findings presented. I attest that I had a [id number] encounter with the patient on the same day, and personally performed and documented my assessment and findings in the medical record. Citlaly Barr Jul 14, 2017 11:53 Mark Saez MD Jul 27, 2017 13:57
--- NOTE | 2017-07-14 12:40 | HHI.PR ---
Subjective Remarks Follow up for nausea/vomiting/diarrhea/body aches/sweats with elevated LFTs and abnormal GB. The patient reports feeling slightly better today. Still has pain at RUQ, worse with minimal palpation. Denies any nausea/vomiting or diarrhea today. Denies any fevers but does report occasional chills and sweats overnight. Again he denies any new sexual partners or unprotected sex, denies any IVDU, no new tattoos. He denies any other medical complaints at this time. Objective Vitals Vital Signs Date Time Temp Pulse Resp B/P (MAP) Pulse Ox O2 Delivery O2 Flow Rate FiO2 07/14/17 11:16 98.0 70 18 112/72 (85) 93 07/14/17 10:41 18 07/14/17 07:46 99.2 62 20 108/69 (82) 94 07/14/17 04:00 99.2 62 20 121/79 (93) 95 07/14/17 00:00 98.8 76 20 120/77 (91) 94 07/13/17 20:50 07/13/17 19:58 70 16 124/80 (95) 98 Room Air 07/13/17 16:43 97.8 86 16 131/72 (91) 99 Room Air 07/13/17 16:08 17 07/13/17 15:07 97.9 78 17 119/78 (92) 99 07/13/17 15:00 17 98 Room Air 07/13/17 15:00 86 17 07/13/17 14:05 97.9 82 18 131/81 (98) 96 Room Air I/O 07/13/17 07/13/17 07/13/17 07/14/17 07/14/17 07/14/17 07:00 15:00 23:00 07:00 15:00 23:00 Intake Total 1340 ml 120 ml Output Total 400 ml 380 ml Balance 940 ml -260 ml Intake Oral 240 ml 120 ml IV Total 1100 ml Output Urine Total 400 ml 380 ml # Voids 1 # Bowel Movements 0 0 Result Diagram: 07/14/1718 07/14/1718 Imaging Last Impressions Gall Bladder Ultrasound 07/13/17 0000 Signed Impressions: Service Date/Time: Thursday, July 13, 2017 16:55 - CONCLUSION: Markedly abnormal gallbladder appearance. Hayden Garcia MD Objective Remarks GENERAL: Well-nourished, well-developed middle aged male patient in [facility]. SKIN: Warm and clammy. Mild papular rash throughout anterior chest and abdomen. HEENT: Normocephalic. Atraumatic.Pupils equal and round. Mucous membranes pink and moist. CARDIOVASCULAR: Regular rate and rhythm. S1, S2 noted. No murmur appreciated. RESPIRATORY: No accessory muscle use. Clear to auscultation. Breath sounds equal bilaterally. GASTROINTESTINAL: Abdomen soft, nondistended, RUQ TTP. Normoactive bowel sounds x4. MUSCULOSKELETAL: No obvious deformities. Extremities without clubbing, cyanosis , or edema. NEUROLOGICAL: Awake and alert. No obvious cranial nerve deficits. Motor grossly within normal limits. Normal speech. PSYCHIATRIC: Appropriate mood and affect; insight and judgment normal. Medications and IVs Current Medications Medications (Trade) Dose Ordered Sig/Aniyah Route Start Time Stop Time Status Last Admin (NS Flush) 2 ml UNSCH PRN IV FLUSH 07/13/17 15:00 07/13/17 15:08 (Narcan Inj) 0.4 mg UNSCH PRN IV PUSH 07/13/17 20:15 Piperacillin Sod/ Tazobactam Sod 100 ml @ 200 mls/hr Q6H IV 07/14/17 00:00 07/14/17 11:43 (Zoloft) 100 mg DAILY PO 07/14/17 09:00 07/14/17 08:33 Sodium Chloride 1,000 ml @ 125 mls/hr Q8H IV 07/13/17 22:00 07/14/17 08:40 (Dilaudid Pf Inj) 0.2 mg Q4H PRN IV PUSH 07/13/17 21:45 07/14/17 10:11 (Zofran Inj) 4 mg Q6H PRN IV PUSH 07/13/17 21:45 (Protonix Inj) 40 mg Q12H IV PUSH 07/13/17 23:00 07/14/17 11:41 A/P Problem List: (1) Cholecystitis ICD Code: K81.9 - Cholecystitis, unspecified (2) Elevated LFTs ICD Code: R79.89 - Other specified abnormal findings of blood chemistry Status: Acute (3) Upper GI bleed ICD Code: K92.2 - Gastrointestinal hemorrhage, unspecified (4) Bandemia ICD Code: D72.825 - Bandemia Status: Acute (5) UTI (urinary tract infection) ICD Code: N39.0 - Urinary tract infection, site not specified (6) Thrombocytopenia ICD Code: D69.6 - Thrombocytopenia, unspecified (7) Hypokalemia ICD Code: E87.6 - Hypokalemia (8) Hyponatremia ICD Code: E87.1 - Hypo-osmolality and hyponatremia (9) Lower extremity pain, anterior ICD Code: M79.606 - Pain in leg, unspecified (10) Depression ICD Code: F32.9 - Major depressive disorder, single episode, unspecified Status: Chronic (11) Tobacco abuse ICD Code: Z72.0 - Tobacco use Assessment and Plan 46 y/o male who presented to ED on 07/13/17 for evaluation of leg pain and was found to have symptoms and imaging c/w cholecystitis. Elevated LFTs with N/V/D and RUQ abdominal pain: suspect secondary to Acute Hepatitis vs Cholecystitis. Labs reviewed, Tbili 3.5, AST 319, ALT 300, Alk Phos 158. Low acetaminophen level. Hx of hepatitis B or C. - Gallbladder ultrasound reviewed, markedly abnormal gallbladder appearance with moderately thickened diffusely edematous gallbladder wall. No definite mobile stones. - general surgery consultation, appreciate recommendations - Continue supportive treatment with IVF, pain control with IV dilaudid prn, and IV zofran prn nausea/vomiting - Clear liquid diet for now - Continue to monitor LFTs - Awaiting hepatitis panel - GI consulted, appreciate recommendations Possible upper GI bleeding with N/V: patient reports red emesis and black stool - check stool hemoccult - consulted gastroenterology - also patient may have liver cirrhosis - has history of hepatitis; platelets 61K - Protonix 40 mg IV q12h - continue to monitor H&H, Currently stable with Hgb 14.6 UTI, possible Bandemia: possibly related to cholecystitis vs UTI - UA suspicious for UTI, started on antibiotics with IV Zosyn 4.5 grams q6h IV to cover both gall bladder and UTI as possible infection sources - await culture results and adjust antibiotics as indicated Thrombocytopenia - history of hepatitis and possible liver cirrhosis - suspect may be secondary to liver disease. Platelet count 61,000 on admission - monitor CBC - liver work up as above Hypokalemia: K+ 3.4 - potassium replaced - recheck BMP with K 3.7 - continue to monitor Hyponatremia: Na+ 133 on admission - replaced with NS at 125 cc/hr - recheck BMP not improved, Na 132, continue fluids Lower extremity pain, bilateral - suspect patient may have some degree of PAD - recommend follow up with PCP and EMMANUEL as an outpatient Depression - resume home Sertraline Tobacco abuse - counselled extensively regarding cessation - patient receptive to counseling DVT prophylaxis- SCDs/TEDs; avoid chemoprophylaxis with thrombocytopenia and possible upcoming procedure Missy Borges PA-C Jul 14, 2017 12:40 pm
[2017-07-14 16:06] LABS: FERRITIN 1900 NG/ML (26-388); TRANSFERRIN IRON PROFILE 127 MG/DL (200-360)
[2017-07-14 16:12] LABS: INTERNATIONAL NORMALIZED RATIO 1.1 RATIO; PROTHROMBIN TIME - PATIENT 12.1 SEC (9.8-11.6)
--- NOTE | 2017-07-14 22:39 | RADRPT ---
EXAM DATE/TIME: 07/14/2017 21:47 [facility] COMPARISON: US ABDOMEN - GALLBLADDER, July 13, 2017, 16:55. INDICATIONS : Jaundice. CONTRAST: 20 cc Omniscan (gadodiamide) IV MEDICAL HISTORY : None. SURGICAL HISTORY : Right leg. ENCOUNTER: Subsequent ACUITY: 1 day PAIN SCORE: 5/10 LOCATION: abdomen. TECHNIQUE: Multiplanar, multisequence magnetic resonance imaging of the abdomen was performed. High-resolution 3D dataset was utilized to reconstruct maximum-intensity projection (MIP) images. FINDINGS: INTRAHEPATIC BILE DUCTS: Within normal limits. No significant anatomical variant is present. EXTRAHEPATIC BILE DUCTS: The common bile duct measures 3 mm No stone or filling defect is identified. No distal obstructing ma ss is visualized. GALLBLADDER: The gallbladder is free of stones. Gallbladder wall is very prominently thickened and edematous measu ring up to 1 cm. LIVER: Liver appears enlarged. There is decreased signal on the opposed phase images consistent with hepatic steatosis. Focal hepatic lesions are not seen. There does appear be some ascites seen around the xavier er and in the right paracolic gutter. PANCREAS: The main pancreatic duct is normal in size. There is no significant anatomical variant. Signal inte nsity is within normal limits. No mass is visualized. OTHER: The spleen is upper limits of normal measuring 12.7 cm in length. No focal splenic lesions are seen. CONCLUSION: 1. No biliary duct dilatation or stones are seen. 2. Hepatic steatosis. The liver is enlarged. There is mild ascites in the right upper quadrant. Diffu se liver abnormality needs to be suspected. 3. Gallbladder wall thickening. This is nonspecific. It can be seen with hepatic disease. Hayden Murray MD on July 14, 2017 at 22:32 Board Certified Radiologist. This report was verified electronically.
[2017-07-15] MEDS: PANTOPRAZOLE SODIUM 40 MG VIAL IV PUSH SCH ×3 (00:21→23:34)
[2017-07-15] MEDS: PIPERACIL-TAZO 4.5 GM PREMIX 100 ML IV SCH ×5 (00:21→23:34)
[2017-07-15] MEDS: SODIUM CHLOR 0.9% 1000 ML INJ 1,000 ML IV SCH ×4 (00:21→23:34)
[2017-07-15] MEDS: HYDROmorphone HCL PF 1 MG/ML VIAL IV PUSH PRN ×4 (03:25→19:35)
[2017-07-15 04:00] VITALS: BP 112/72; PULSE 59; RESP 18; TEMP 99.5; O2SAT 94
[2017-07-15 07:27] LABS: AUTOMATED NEUTROPHIL # 4.1 TH/MM3 (1.8-7.7); BASOPHIL % 0.5 % (0.0-2.0); EOSINOPHIL # 0.1 TH/MM3 (0-0.4); EOSINOPHIL % 1.1 % (0.0-4.0); HEMATOCRIT 38.9 % (39.0-51.0); LYMPHOCYTE # 1.9 TH/MM3 (1.0-4.8); MEAN CORPUSCULAR HEMOGLOBIN 32.6 PG (27.0-34.0); MEAN CORPUSCULAR HGB CONC 34.7 % (32.0-36.0); MONO % 12.6 % (0.0-8.0); NEUT % 58.8 % (16.0-70.0); PLATELET COUNT 73 TH/MM3 (150-450); RED BLOOD COUNT 4.14 MIL/MM3 (4.50-5.90); RED CELL DISTRIBUTION WIDTH 12.8 % (11.6-17.2)
[2017-07-15 07:29] LABS: HEMO FLAGS AUTO DIFF
[2017-07-15 07:32] LABS: INTERNATIONAL NORMALIZED RATIO 1.1 RATIO
[2017-07-15 07:49] LABS: ANION GAP 7 MEQ/L (5-15); AST (GOT) 138 U/L (15-37); BICARBONATE 26.4 MEQ/L (21.0-32.0); BLOOD UREA NITROGEN 8 MG/DL (7-18); CHLORIDE 101 MEQ/L (98-107); GLOMERULAR FILTRATION RATE 132 ML/MIN (>89); POTASSIUM 3.5 MEQ/L (3.5-5.1); SODIUM (NA) 134 MEQ/L (136-145)
[2017-07-15 07:53] LABS: ALKALINE PHOSPHATASE 137 U/L (45-117); ALT (GPT) 161 U/L (12-78); TOTAL BILIRUBIN ADULT 1.9 MG/DL (0.2-1.0)
[2017-07-15 08:39] VITALS: BP 111/62; PULSE 58; RESP 20; TEMP 98.9; O2SAT 96
[2017-07-15 08:58] LABS: SCAN/DIFF AUTO DIFF CONFIRMED
[2017-07-15] MEDS: SERTRALINE HCL 100 MG TAB PO SCH (09:26)
--- NOTE | 2017-07-15 10:08 | HHI.PR ---
Subjective Remarks Follow up for nausea/vomiting/diarrhea/body aches/sweats with elevated LFTs and abnormal GB. The patient reports feeling slightly better today. Only has RUQ abdominal pain with palpation, denies any pain at rest. Denies any nausea/ vomiting. He's tolerating clear liquid intake. Denies fevers/chills but did wake up with sweats/diaphoresis overnight. He had one liquid nonbloody diarrhea BM yesterday. He has no other medical complaints at this time. Objective Vitals Vital Signs Date Time Temp Pulse Resp B/P (MAP) Pulse Ox O2 Delivery O2 Flow Rate FiO2 07/15/17 08:39 98.9 58 20 111/62 (78) 96 07/15/17 04:57 18 07/15/17 04:00 99.5 59 18 112/72 (85) 94 07/14/17 23:51 97.8 61 18 114/60 (78) 98 07/14/17 21:25 98.4 64 18 117/74 (88) 93 07/14/17 16:18 98.9 72 20 128/83 (98) 93 07/14/17 11:16 98.0 70 18 112/72 (85) 93 I/O 07/14/17 07/14/17 07/14/17 07/15/17 07/15/17 07/15/17 07:00 15:00 23:00 07:00 15:00 23:00 Intake Total 120 ml 200 ml 200 ml Output Total 380 ml 300 ml Balance -260 ml 200 ml -300 ml 200 ml Intake Oral 120 ml 200 ml 200 ml Output Urine Total 380 ml 300 ml # Voids 3 # Bowel Movements 0 1 Result Diagram: 07/15/17 0640 07/15/17 0640 Imaging Last Impressions Cholangiopancreatography MRI 07/14/17 0000 Signed Impressions: Service Date/Time: July 21:47 - CONCLUSION: 1. No biliary duct dilatation or stones are seen. 2. Hepatic steatosis. The liver is enlarged. There is mild ascites in the right upper quadrant. Diffuse liver abnormality needs to be suspected. 3. Gallbladder wall thickening. This is nonspecific. It can be seen with hepatic disease. Hayden Murray MD Gall Bladder Ultrasound 07/13/17 0000 Signed Impressions: Service Date/Time: Thursday, July 13, 2017 16:55 - CONCLUSION: Markedly abnormal gallbladder appearance. Hayden Garcia MD Objective Remarks GENERAL: Well-nourished, well-developed middle aged male patient in NAD. SKIN: Warm and clammy. Mild papular rash throughout anterior chest and abdomen. HEENT: Normocephalic. Atraumatic.Pupils equal and round. Mucous membranes pink and moist. CARDIOVASCULAR: Regular rate and rhythm. S1, S2 noted. No murmur appreciated. RESPIRATORY: No accessory muscle use. Clear to auscultation. Breath sounds equal bilaterally. GASTROINTESTINAL: Abdomen soft, nondistended, RUQ tenderness to deep palpation. Normoactive bowel sounds x4. MUSCULOSKELETAL: No obvious deformities. Extremities without clubbing, cyanosis , or edema. NEUROLOGICAL: Awake and alert. No obvious cranial nerve deficits. Motor grossly within normal limits. Normal speech. PSYCHIATRIC: Appropriate mood and affect; insight and judgment normal. Medications and IVs Current Medications Medications (Trade) Dose Ordered Sig/Aniyah Route Start Time Stop Time Status Last Admin (NS Flush) 2 ml UNSCH PRN IV FLUSH 07/13/17 15:00 07/13/17 15:08 (Narcan Inj) 0.4 mg UNSCH PRN IV PUSH 07/13/17 20:15 Piperacillin Sod/ Tazobactam Sod 100 ml @ 200 mls/hr Q6H IV 07/14/17 00:00 07/15/17 05:08 (Zoloft) 100 mg DAILY PO 07/14/17 09:00 07/15/17 09:26 Sodium Chloride 1,000 ml @ 125 mls/hr Q8H IV 07/13/17 22:00 07/15/17 09:26 (Dilaudid Pf Inj) 0.2 mg Q4H PRN IV PUSH 07/13/17 21:45 07/15/17 09:27 (Zofran Inj) 4 mg Q6H PRN IV PUSH 07/13/17 21:45 (Protonix Inj) 40 mg Q12H IV PUSH 07/13/17 23:00 07/15/17 09:27 A/P Problem List: (1) Cholecystitis ICD Code: K81.9 - Cholecystitis, unspecified (2) Elevated LFTs ICD Code: R79.89 - Other specified abnormal findings of blood chemistry Status: Acute (3) Upper GI bleed ICD Code: K92.2 - Gastrointestinal hemorrhage, unspecified (4) Bandemia ICD Code: D72.825 - Bandemia Status: Acute (5) UTI (urinary tract infection) ICD Code: N39.0 - Urinary tract infection, site not specified (6) Thrombocytopenia ICD Code: D69.6 - Thrombocytopenia, unspecified (7) Hypokalemia ICD Code: E87.6 - Hypokalemia (8) Hyponatremia ICD Code: E87.1 - Hypo-osmolality and hyponatremia (9) Lower extremity pain, anterior ICD Code: M79.606 - Pain in leg, unspecified (10) Depression ICD Code: F32.9 - Major depressive disorder, single episode, unspecified Status: Chronic (11) Tobacco abuse ICD Code: Z72.0 - Tobacco use Assessment and Plan 46 y/o male who presented to ED on 07/13/17 for evaluation of leg pain and was found to have symptoms and imaging c/w cholecystitis. Elevated LFTs with N/V/D and RUQ abdominal pain: suspect secondary to Acute Hepatitis vs Cholecystitis. Labs reviewed, Tbili 3.5, AST 319, ALT 300, Alk Phos 158. Low acetaminophen level. Hx of hepatitis B or C. - Gallbladder ultrasound reviewed, markedly abnormal gallbladder appearance with moderately thickened diffusely edematous gallbladder wall. No definite mobile stones. - general surgery consultation, appreciate recommendations - Continue supportive treatment with IVF, pain control with IV dilaudid prn, and IV zofran prn nausea/vomiting - Clear liquid diet for now - Continue to monitor LFTs, trending down - Awaiting hepatitis panel results - GI consulted, appreciate recommendations Possible upper GI bleeding with N/V: patient reports red emesis and black stool - check stool hemoccult - consulted gastroenterology - also patient may have liver cirrhosis - has history of hepatitis; platelets 61K - Protonix 40 mg IV q12h - continue to monitor H&H, Currently stable with Hgb 13.5 UTI, possible Bandemia: possibly related to cholecystitis vs UTI - UA suspicious for UTI, started on antibiotics with IV Zosyn 4.5 grams q6h IV to cover both gall bladder and UTI as possible infection sources - await culture results and adjust antibiotics as indicated Thrombocytopenia - history of hepatitis and possible liver cirrhosis - suspect may be secondary to liver disease. Platelet count 61,000 on admission - monitor CBC, slightly improved, platelets 73K - liver work up as above Hypokalemia: K+ 3.4 - potassium replaced - recheck BMP with K 3.7 - continue to monitor, replace as needed Hyponatremia: Na+ 133 on admission - replaced with NS at 125 cc/hr - recheck BMP mildly improved, Na 134 Lower extremity pain, bilateral - suspect patient may have some degree of PAD - recommend follow up with PCP and EMMANUEL as an outpatient Depression - resume home Sertraline Tobacco abuse - counselled extensively regarding cessation - patient receptive to counseling DVT prophylaxis- SCDs/TEDs; avoid chemoprophylaxis with thrombocytopenia and possible upcoming procedure Missy Borges PA-C Jul 15, 2017 10:08 am
[2017-07-15 12:51] VITALS: BP 120/60; PULSE 60; RESP 18; TEMP 97.9; O2SAT 95
[2017-07-15 16:14] VITALS: BP 116/70; PULSE 60; TEMP 98.6
[2017-07-15 16:45] LABS: C. DIFF EPI 027 PRESUMPTIVE NEGATIVE (NEGATIVE)
--- NOTE | 2017-07-15 16:45 | HHI.GIFU ---
Subjective Remarks Pt resting in bed. Still with loose stool. (Kathryn Schaffer) Objective Vitals I&O Vital Signs Date Time Temp Pulse Resp B/P (MAP) Pulse Ox O2 Delivery O2 Flow Rate FiO2 07/15/17 16:14 98.6 60 116/70 (85) 07/15/17 12:51 97.9 60 18 120/60 (80) 95 07/15/17 08:39 98.9 58 20 111/62 (78) 96 07/15/17 04:57 18 07/15/17 04:00 99.5 59 18 112/72 (85) 94 07/14/17 23:51 97.8 61 18 114/60 (78) 98 07/14/17 21:25 98.4 64 18 117/74 (88) 93 I/O 07/14/17 07/14/17 07/14/17 07/15/17 07/15/17 07/15/17 07:00 15:00 23:00 07:00 15:00 23:00 Intake Total 120 ml 200 ml 300 ml Output Total 380 ml 300 ml Balance -260 ml 200 ml -300 ml 300 ml Intake Oral 120 ml 200 ml 200 ml IV Total 100 ml Output Urine Total 380 ml 300 ml # Voids 3 # Bowel Movements 0 1 Laboratory Laboratory Tests Test 07/15/17 06:40 07/15/17 13:00 White Blood Count 7.0 Red Blood Count 4.14 Hemoglobin 13.5 Hematocrit 38.9 Mean Corpuscular Volume 94.0 Mean Corpuscular Hemoglobin 32.6 Mean Corpuscular Hemoglobin Concent 34.7 Red Cell Distribution Width 12.8 Platelet Count 73 Mean Platelet Volume 9.1 Neutrophils (%) (Auto) 58.8 Lymphocytes (%) (Auto) 27.0 Monocytes (%) (Auto) 12.6 Eosinophils (%) (Auto) 1.1 Basophils (%) (Auto) 0.5 Neutrophils # (Auto) 4.1 Lymphocytes # (Auto) 1.9 Monocytes # (Auto) 0.9 Eosinophils # (Auto) 0.1 Basophils # (Auto) 0.0 CBC Comment AUTO DIFF Differential Comment AUTO DIFF CONFIRMED Prothrombin Time 12.0 Prothromb Time International Ratio 1.1 Blood Urea Nitrogen 8 Creatinine 0.65 Random Glucose 97 Total Protein 5.0 Albumin 2.3 Calcium Level 7.5 Alkaline Phosphatase 137 Aspartate Amino Transf (AST/SGOT) 138 Alanine Aminotransferase (ALT/SGPT) 161 Total Bilirubin 1.9 Sodium Level 134 Potassium Level 3.5 Chloride Level 101 Carbon Dioxide Level 26.4 Anion Gap 7 Estimat Glomerular Filtration Rate 132 Date/Time Source Procedure Growth Status 07/13/17 16:00 Urine Clean Catch Urine Culture - Final 50-100,000 CFU/ML MIXED GRAM POSITIVE... Complete Imaging Last Impressions Cholangiopancreatography MRI 07/14/17 0000 Signed Impressions: Service Date/Time: July 21:47 - CONCLUSION: 1. No biliary duct dilatation or stones are seen. 2. Hepatic steatosis. The liver is enlarged. There is mild ascites in the right upper quadrant. Diffuse liver abnormality needs to be suspected. 3. Gallbladder wall thickening. This is nonspecific. It can be seen with hepatic disease. Hayden Murray MD Gall Bladder Ultrasound 07/13/17 0000 Signed Impressions: Service Date/Time: Thursday, July 13, 2017 16:55 - CONCLUSION: Markedly abnormal gallbladder appearance. Hayden Garcia MD Physical Exam HEENT: PERRL; normocephalic; atraumatic; no jaundice. CHEST: CTA CARDIAC: RRR ABDOMEN: Soft, nondistended, RUQ TTP; +hepatomegaly; bowel sounds are present in all four quadrants. EXTREMITIES: No clubbing, cyanosis, or edema. SKIN: Normal; no rash; no jaundice. [employer]: No focal deficits; alert and oriented times three. (Kathryn Schaffer [facility]) Assessment and Plan Plan ASSESSMENT: - Elevated LFTs, ? Acute hepatitis. 6 day hx of chills, diaphoresis, malaise, RUQ pain, nausea, vomiting, diarrhea. Pt does report history of hepatitis, he believes hepatitis b, but is unsure. His symptoms are more consistent with a acute viral hepatitis though. Denies new meds, new tattoos, new sexual partners. US abdominal (07/13/17)----> Markedly abnormal in appearance with moderately thickened edematous gallbladder wall diffusely. No definite mobile stones. AFP 4.2, iron 85, TIBC 178L, sat 47.8, ferritin 1900H. rest of w/u pending Hep C ab reactive, will get quant & gentoype - N/V/D, stool studies pending - Abnormal imaging of Gallbladder. US as above. RUQ tenderness. GB etiology vs. hepatocellular dz. - RUQ tenderness. Unclear if it is related to GB or hepatitis. - Bandemia, Chills. Abn. U/A, cx pending. Fine spotted red rash to trunk. Zosyn. - Thrombocytopenia. Plt 65,000. - Abn. U/A, gram pos ronald prob contamination 07/15/17-- hep c ab reactive, will get quant & genotype PLAN: - adv diet as tolerated - hep C quant & genotype - await rest of liver w/u - Supportive care - Further recommendations to follow based on results of above - Pt seen and examined by Dr. Burns and myself and this note is written on his behalf (Kathryn Schaffer) Kathryn Schaffer Jul 15, 2017 16:45 Alanna Burns MD Jul 15, 2017 19:31
[2017-07-15 19:48] VITALS: BP 137/86; PULSE 66; RESP 17; TEMP 99.4; O2SAT 94
--- NOTE | 2017-07-15 20:36 | HHI.PR ---
Subjective Subjective Notes Resting in bed RUQ pain improved today Objective Vitals/I&O Vital Signs Date Time Temp Pulse Resp B/P (MAP) Pulse Ox O2 Delivery O2 Flow Rate FiO2 07/15/17 19:48 99.4 66 17 137/86 (103) 94 07/13/17 19:58 Room Air Labs Laboratory Tests Test 07/15/17 06:40 07/15/17 13:00 White Blood Count 7.0 Red Blood Count 4.14 Hemoglobin 13.5 Hematocrit 38.9 Mean Corpuscular Volume 94.0 Mean Corpuscular Hemoglobin 32.6 Mean Corpuscular Hemoglobin Concent 34.7 Red Cell Distribution Width 12.8 Platelet Count 73 Mean Platelet Volume 9.1 Neutrophils (%) (Auto) 58.8 Lymphocytes (%) (Auto) 27.0 Monocytes (%) (Auto) 12.6 Eosinophils (%) (Auto) 1.1 Basophils (%) (Auto) 0.5 Neutrophils # (Auto) 4.1 Lymphocytes # (Auto) 1.9 Monocytes # (Auto) 0.9 Eosinophils # (Auto) 0.1 Basophils # (Auto) 0.0 CBC Comment AUTO DIFF Differential Comment AUTO DIFF CONFIRMED Prothrombin Time 12.0 Prothromb Time International Ratio 1.1 Blood Urea Nitrogen 8 Creatinine 0.65 Random Glucose 97 Total Protein 5.0 Albumin 2.3 Calcium Level 7.5 Alkaline Phosphatase 137 Aspartate Amino Transf (AST/SGOT) 138 Alanine Aminotransferase (ALT/SGPT) 161 Total Bilirubin 1.9 Sodium Level 134 Potassium Level 3.5 Chloride Level 101 Carbon Dioxide Level 26.4 Anion Gap 7 Estimat Glomerular Filtration Rate 132 Stool C. difficile Toxin (PCR) NEGATIVE Stl C. difficile Toxin Epiderm 027 PRESUMPTIVE NEGATIVE Date/Time Source Procedure Growth Status 07/13/17 16:00 Urine Clean Catch Urine Culture - Final 50-100,000 CFU/ML MIXED GRAM POSITIVE... Complete Radiology Last 48 hours Impressions Gall Bladder Ultrasound 07/13/17 0000 Signed Impressions: Service Date/Time: Thursday, July 13, 2017 16:55 - CONCLUSION: Markedly abnormal gallbladder appearance. Hayden Garcia MD Cardiovascular: Regular Lungs: Clear Abdomen: Other (minimal RUQ tenderness with palpation ) Extremities: No edema A/P Assessment and Plan 46 year old male with elevated liver enzymes; RUQ tenderness -Hepatitis panel -T-bili trending down -Clear liquids -HIDA scan in the morning Attending Statement patient seen at bedside pain better await hida Attestation The exam, history, and the medical decision-making described in the above note were completed with the assistance of the mid-level provider. I reviewed and agree with the findings presented. I attest that I had a [id number] encounter with the patient on the same day, and personally performed and documented my assessment and findings in the medical record. Citlaly Barr Jul 15, 2017 20:36 Mark Saez MD Jul 27, 2017 12:58
[2017-07-15 23:25] VITALS: BP 139/87; PULSE 93; RESP 18; TEMP 99; O2SAT 91
[2017-07-16] MEDS: HYDROmorphone HCL PF 1 MG/ML VIAL IV PUSH PRN ×6 (00:23→22:39)
[2017-07-16 03:06] VITALS: BP 119/84; PULSE 78; RESP 17; TEMP 98.2; O2SAT 93
[2017-07-16] MEDS: SODIUM CHLOR 0.9% 1000 ML INJ 1,000 ML IV SCH ×3 (05:11→22:42)
[2017-07-16] MEDS: PIPERACIL-TAZO 4.5 GM PREMIX 100 ML IV SCH ×3 (05:11→18:36)
[2017-07-16 07:01] LABS: ANION GAP 9 MEQ/L (5-15); AST (GOT) 101 U/L (15-37); BICARBONATE 24.5 MEQ/L (21.0-32.0); BLOOD UREA NITROGEN 5 MG/DL (7-18); CHLORIDE 103 MEQ/L (98-107); GLOMERULAR FILTRATION RATE 164 ML/MIN (>89); POTASSIUM 3.1 MEQ/L (3.5-5.1); SODIUM (NA) 136 MEQ/L (136-145)
[2017-07-16 07:03] LABS: ALT (GPT) 133 U/L (12-78)
[2017-07-16 07:04] LABS: ALKALINE PHOSPHATASE 184 U/L (45-117); TOTAL BILIRUBIN ADULT 1.2 MG/DL (0.2-1.0)
[2017-07-16] MEDS ORDERED: POTASSIUM CHLORIDE 25 MEQ EFFERVESCENT TAB PO ONE (08:30)
[2017-07-16 08:55] VITALS: BP 120/80; PULSE 68; RESP 20; TEMP 98.2; O2SAT 98
--- NOTE | 2017-07-16 11:30 | RADRPT ---
EXAM DATE/TIME: 07/16/2017 10:02 This report includes an Addendum and supersedes previous reports for this exam. [facility] COMPARISON: MRCP W & W/O CONTRAST, July 14, 2017, 21:47. INDICATIONS : Right upper quadrant pain with nausea and vomiting for five days. DOSE: 4.1 mCi Tc99m Mebrofenin IV MEDICAL HISTORY : Carcinoma, testicular. Hepatitis B. SURGICAL HISTORY : Bilateral testicles. ENCOUNTER: Initial ACUITY: 4 - 6 days PAIN SCALE: 5/10 LOCATION: Right upper quadrant TECHNIQUE: Following the intravenous administration of radiotracer, dynamic sequential images were performed wit h continuous acquisition. FINDINGS: HEPATIC KINETICS: There is prompt uptake of radiotracer in the liver. No focal defects are seen. There is normal rate of washout from the hepatic parenchyma. BILIARY CLEARANCE: Activity is first seen in the extrahepatic biliary system at 15 minutes. There is normal excretion i nto the small bowel. GALLBLADDER: The gallbladder is not identified. The examination would raise the concern for cholecystitis. Delayed imaging could be performed. BILIARY ENTRIC REFLUX: None observed. CONCLUSION: 1. Nonvisualization of the gallbladder concerning for cholecystitis. Baldev Tinoco MD on July 16, 2017 at 11:27 Board Certified Radiologist. This report was verified electronically. ADDENDUM: 24-hour delayed imaging is provided. The gallbladder is not identified. The exam is concern for edy cystitis. Baldev Tinoco MD on July 17, 2017 at 10:19 Board Certified Radiologist. This report was verified electronically.
[2017-07-16] MEDS: SERTRALINE HCL 100 MG TAB PO SCH (11:36)
[2017-07-16] MEDS: PANTOPRAZOLE SODIUM 40 MG VIAL IV PUSH SCH ×2 (11:36→22:37)
[2017-07-16 12:12] VITALS: BP 144/66; PULSE 69; TEMP 98.2; O2SAT 96
[2017-07-16 16:25] VITALS: BP 142/60; PULSE 70; RESP 20; TEMP 97.9; O2SAT 96
--- NOTE | 2017-07-16 16:26 | HHI.GIFU ---
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 (Kathryn Schaffer) Objective Vitals I&O Vital Signs Date Time Temp Pulse Resp B/P (MAP) Pulse Ox O2 Delivery O2 Flow Rate FiO2 07/16/17 12:12 98.2 69 144/66 (92) 96 07/16/17 08:55 98.2 68 20 120/80 (93) 98 07/16/17 06:03 16 07/16/17 03:06 98.2 78 17 119/84 (96) 93 07/15/17 23:25 99.0 93 18 139/87 (104) 91 07/15/17 19:48 99.4 66 17 137/86 (103) 94 I/O 07/15/17 07/15/17 07/15/17 07/16/17 07/16/17 07/16/17 07:00 15:00 23:00 07:00 15:00 23:00 Intake Total 300 ml 3125 ml Output Total 300 ml 1300 ml 4450 ml Balance -300 ml 300 ml 1825 ml -4450 ml Intake Oral 200 ml 750 ml IV Total 100 ml 2375 ml Output Urine Total 300 ml 1300 ml 4450 ml # Voids 1 Laboratory Laboratory Tests Test 07/16/17 06:10 Blood Urea Nitrogen 5 Creatinine 0.54 Random Glucose 120 Total Protein 5.3 Albumin 2.4 Calcium Level 7.6 Alkaline Phosphatase 184 Aspartate Amino Transf (AST/SGOT) 101 Alanine Aminotransferase (ALT/SGPT) 133 Total Bilirubin 1.2 Sodium Level 136 Potassium Level 3.1 Chloride Level 103 Carbon Dioxide Level 24.5 Anion Gap 9 Estimat Glomerular Filtration Rate 164 Date/Time Source Procedure Growth Status 07/13/17 16:00 Urine Clean Catch Urine Culture - Final 50-100,000 CFU/ML MIXED GRAM POSITIVE... Complete Imaging Last Impressions Hepatobiliary Scan Nuclear Medicine 07/16/17 0800 Signed Impressions: Service Date/Time: Sunday, July 16, 2017 10:02 - CONCLUSION: 1. Nonvisualization of the gallbladder concerning for cholecystitis. Baldev Tinoco MD Cholangiopancreatography MRI 07/14/17 0000 Signed Impressions: Service Date/Time: July 21:47 - CONCLUSION: 1. No biliary duct dilatation or stones are seen. 2. Hepatic steatosis. The liver is enlarged. There is mild ascites in the right upper quadrant. Diffuse liver abnormality needs to be suspected. 3. Gallbladder wall thickening. This is nonspecific. It can be seen with hepatic disease. Hayden Murray MD Gall Bladder Ultrasound 07/13/17 0000 Signed Impressions: Service Date/Time: Thursday, July 13, 2017 16:55 - CONCLUSION: Markedly abnormal gallbladder appearance. Hayden Garcia MD Physical Exam HEENT: PERRL; normocephalic; atraumatic; no jaundice. CHEST: CTA CARDIAC: RRR ABDOMEN: Soft, nondistended, RUQ TTP; +hepatomegaly; bowel sounds are present in all four quadrants. EXTREMITIES: No clubbing, cyanosis, or edema. SKIN: Normal; no rash; no jaundice. ACCOUNTS MANAGER: No focal deficits; alert and oriented times three. (Kathryn Schaffer [facility]) Assessment and Plan Plan ASSESSMENT: - Elevated LFTs, ? Acute hepatitis. 6 day hx of chills, diaphoresis, malaise, RUQ pain, nausea, vomiting, diarrhea. Pt does report history of hepatitis, he believes hepatitis b, but is unsure. His symptoms are more consistent with a acute viral hepatitis though. Denies new meds, new tattoos, new sexual partners. US abdominal (07/13/17)----> Markedly abnormal in appearance with moderately thickened edematous gallbladder wall diffusely. No definite mobile stones. HIDA concerning for cholecystitis, will await delayed imaging AFP 4.2, iron 85, TIBC 178L, sat 47.8, ferritin 1900H. VALERIE neg, ASMA neg. LFTs trending down. Hep C ab reactive, quant & gentoype pending - N/V/D, stool studies pending c diff neg - Abnormal imaging of Gallbladder. US as above. HIDA pos, delayed imaging pending RUQ tenderness. GB etiology vs. hepatocellular dz. - RUQ tenderness. Unclear if it is related to GB or hepatitis. - Bandemia, Chills. Abn. U/A, cx pending. Fine spotted red rash to trunk. Zosyn. - Thrombocytopenia. ? liverdz - Abn. U/A, gram pos ronald prob contamination 07/15/17-- hep c ab reactive, will get quant & genotype 07/16/17 -- viral load & genotype pending. HIDA pos. d/w GS, if surgery would need PLT. pt now admits heavy drinking 12pk nightly, d/w primary PA PLAN: - await delayed imaging HIDA - await GS f/u - adv diet as tolerated - await hep C quant & genotype - await rest of liver w/u - Supportive care - Further recommendations to follow based on results of above - Pt seen and examined by Dr. Burns and myself and this note is written on his behalf (Kathryn Schaffer) Physician Comments seen, examined agree with above await delayed HIDA, if no surgery planned and delayed study shows cholecystitis consider cholecystostomy tube (Alanna Burns MD) Kathryn Schaffer Jul 16, 2017 16:26 Alanna Burns MD Jul 16, 2017 17:22
--- NOTE | 2017-07-16 16:35 | HHI.PR ---
Subjective Remarks Follow up for nausea/vomiting/diarrhea/body aches/sweats with elevated LFTs and abnormal GB. Patient seen and examined today. Denies any new acute complaints. Continues to complain of right UQ tenderness to palpation. Tolerating clear liquid diet, denies any nausea or vomiting. Denies any diarrhea, or recent fever , chills. Objective Vitals Vital Signs Date Time Temp Pulse Resp B/P (MAP) Pulse Ox O2 Delivery O2 Flow Rate FiO2 07/16/17 16:25 97.9 70 20 142/60 (87) 96 07/16/17 12:12 98.2 69 144/66 (92) 96 07/16/17 08:55 98.2 68 20 120/80 (93) 98 07/16/17 06:03 16 07/16/17 03:06 98.2 78 17 119/84 (96) 93 07/15/17 23:25 99.0 93 18 139/87 (104) 91 07/15/17 19:48 99.4 66 17 137/86 (103) 94 I/O 07/15/17 07/15/17 07/15/17 07/16/17 07/16/17 07/16/17 07:00 15:00 23:00 07:00 15:00 23:00 Intake Total 300 ml 3125 ml Output Total 300 ml 1300 ml 4450 ml Balance -300 ml 300 ml 1825 ml -4450 ml Intake Oral 200 ml 750 ml IV Total 100 ml 2375 ml Output Urine Total 300 ml 1300 ml 4450 ml # Voids 1 Result Diagram: 07/15/17 0640 07/16/17 0610 Imaging Last Impressions Hepatobiliary Scan Nuclear Medicine 07/16/17 0800 Signed Impressions: Service Date/Time: Sunday, July 16, 2017 10:02 - CONCLUSION: 1. Nonvisualization of the gallbladder concerning for cholecystitis. Baldev Tinoco MD Cholangiopancreatography MRI 07/14/17 0000 Signed Impressions: Service Date/Time: July 21:47 - CONCLUSION: 1. No biliary duct dilatation or stones are seen. 2. Hepatic steatosis. The liver is enlarged. There is mild ascites in the right upper quadrant. Diffuse liver abnormality needs to be suspected. 3. Gallbladder wall thickening. This is nonspecific. It can be seen with hepatic disease. Hayden Murray MD Gall Bladder Ultrasound 07/13/17 0000 Signed Impressions: Service Date/Time: Thursday, July 13, 2017 16:55 - CONCLUSION: Markedly abnormal gallbladder appearance. Hayden Garcia MD Objective Remarks GENERAL: Well-nourished, well-developed middle aged male patient in [facility]. SKIN: Warm and clammy. Mild papular rash throughout anterior chest and abdomen. HEENT: Normocephalic. Atraumatic.Pupils equal and round. Mucous membranes pink and moist. CARDIOVASCULAR: Regular rate and rhythm. S1, S2 noted. No murmur appreciated. RESPIRATORY: No accessory muscle use. Clear to auscultation. Breath sounds equal bilaterally. GASTROINTESTINAL: Abdomen soft, nondistended, RUQ tenderness to deep palpation. Normoactive bowel sounds x4. MUSCULOSKELETAL: No obvious deformities. Extremities without clubbing, cyanosis , or edema. NEUROLOGICAL: Awake and alert. No obvious cranial nerve deficits. Motor grossly within normal limits. Normal speech. PSYCHIATRIC: Appropriate mood and affect; insight and judgment normal. A/P Problem List: (1) Cholecystitis ICD Code: K81.9 - Cholecystitis, unspecified (2) Elevated LFTs ICD Code: R79.89 - Other specified abnormal findings of blood chemistry Status: Acute (3) Upper GI bleed ICD Code: K92.2 - Gastrointestinal hemorrhage, unspecified (4) Bandemia ICD Code: D72.825 - Bandemia Status: Acute (5) UTI (urinary tract infection) ICD Code: N39.0 - Urinary tract infection, site not specified (6) Thrombocytopenia ICD Code: D69.6 - Thrombocytopenia, unspecified (7) Hypokalemia ICD Code: E87.6 - Hypokalemia (8) Hyponatremia ICD Code: E87.1 - Hypo-osmolality and hyponatremia (9) Lower extremity pain, anterior ICD Code: M79.606 - Pain in leg, unspecified (10) Depression ICD Code: F32.9 - Major depressive disorder, single episode, unspecified Status: Chronic (11) Tobacco abuse ICD Code: Z72.0 - Tobacco use Assessment and Plan 46 y/o male who presented to ED on 07/13/17 for evaluation of leg pain and was found to have symptoms and imaging c/w cholecystitis. Elevated LFTs with N/V/D and RUQ abdominal pain: suspect secondary to Acute Hepatitis vs Cholecystitis. Labs reviewed, Tbili 3.5, AST 319, ALT 300, Alk Phos 158. Low acetaminophen level. Hx of hepatitis B or C. - Gallbladder ultrasound reviewed, markedly abnormal gallbladder appearance with moderately thickened diffusely edematous gallbladder wall. No definite mobile stones. - general surgery following patient, appreciate recommendations - Continue supportive treatment with IVF, pain control with IV Dilaudid prn, and IV zofran prn nausea/vomiting - Clear liquid diet for now. - Continue to monitor LFTs, trending down - Hepatitis C reactive. Awaiting hepatitis panel results. - GI consulted and following patient, appreciate recommendations Possible upper GI bleeding with N/V: patient reports red emesis and black stool - Hemoccult negative. - consulted gastroenterology - also patient may have liver cirrhosis - has history of hepatitis; platelets 61K - Protonix 40 mg IV q12h - continue to monitor H&H, Currently stable with Hgb 13.5 UTI, resolved. Bandemia: possibly related to cholecystitis vs UTI - Urine culture growing contaminants. Started on antibiotics with IV Zosyn 4.5 grams q6h IV to cover gall bladder and UTI as possible infection sources, will continue. Thrombocytopenia - history of hepatitis and possible liver cirrhosis - suspect may be secondary to liver disease. Platelet count 61,000 on admission - monitor CBC, slightly improved, platelets 73K - liver work up as above Hypokalemia: K+ 3.4 - potassium replaced - recheck BMP with K 3.7 - continue to monitor, replace as needed Hyponatremia: Na+ 133 on admission - replaced with NS at 125 cc/hr - recheck BMP mildly improved, Na 134 Lower extremity pain, bilateral - suspect patient may have some degree of PAD - recommend follow up with PCP and EMMANUEL as an outpatient Depression - resume home Sertraline Tobacco abuse - counselled extensively regarding cessation - patient receptive to counseling DVT prophylaxis- SCDs/TEDs; avoid chemoprophylaxis with thrombocytopenia and possible upcoming procedure Sarah Swain Jul 16, 2017 16:35
--- NOTE | 2017-07-16 16:57 | HHI.PR ---
Subjective Subjective Notes Has more RUQ pain today than yesterday Objective Vitals/I&O Vital Signs Date Time Temp Pulse Resp B/P (MAP) Pulse Ox O2 Delivery O2 Flow Rate FiO2 07/16/17 16:25 97.9 70 20 142/60 (87) 96 07/13/17 19:58 Room Air Labs Laboratory Tests Test 07/16/17 06:10 Blood Urea Nitrogen 5 Creatinine 0.54 Random Glucose 120 Total Protein 5.3 Albumin 2.4 Calcium Level 7.6 Alkaline Phosphatase 184 Aspartate Amino Transf (AST/SGOT) 101 Alanine Aminotransferase (ALT/SGPT) 133 Total Bilirubin 1.2 Sodium Level 136 Potassium Level 3.1 Chloride Level 103 Carbon Dioxide Level 24.5 Anion Gap 9 Estimat Glomerular Filtration Rate 164 Date/Time Source Procedure Growth Status 07/13/17 16:00 Urine Clean Catch Urine Culture - Final 50-100,000 CFU/ML MIXED GRAM POSITIVE... Complete Radiology Last 48 hours Impressions Gall Bladder Ultrasound 07/13/17 0000 Signed Impressions: Service Date/Time: Thursday, July 13, 2017 16:55 - CONCLUSION: Markedly abnormal gallbladder appearance. Hayden Garcia MD Lungs: Clear Abdomen: Non-distended, Other (RUQ tenderness with guarding) A/P Assessment and Plan Assessment and Plan 46 year old male with elevated liver enzymes; RUQ tenderness -Hepatitis panel -T-bili trending down -Clear liquids -HIDA scan shows nonvisualization of the GB; will get delayed scans Discussed with patient that surgery will be problematic with thrombocytopenia and likely cirrhosis, with potential for substantial blood loss and morbidity. Erik Arias MD Jul 16, 2017 16:57
[2017-07-16] MEDS: POTASSIUM CHLOR 20 MEQ PREMIX 100 ML IV SCH ×2 (18:36→20:12)
[2017-07-16 20:00] VITALS: BP 129/87; PULSE 59; RESP 17; TEMP 95.5; O2SAT 95
[2017-07-17] VITALS: BP 121/79; PULSE 60; RESP 17; TEMP 96.4; O2SAT 95
[2017-07-17] MEDS: PIPERACIL-TAZO 4.5 GM PREMIX 100 ML IV SCH ×4 (00:58→17:42)
[2017-07-17] MEDS: HYDROmorphone HCL PF 1 MG/ML VIAL IV PUSH PRN ×3 (02:45→11:04)
[2017-07-17 03:52] LABS: MITOCHONDRIAL ABS LESS THAN 20.0 U (<=20.0)
[2017-07-17 05:36] LABS: AUTOMATED NEUTROPHIL # 3.7 TH/MM3 (1.8-7.7); BASOPHIL % 0.5 % (0.0-2.0); EOSINOPHIL # 0.2 TH/MM3 (0-0.4); EOSINOPHIL % 2.8 % (0.0-4.0); HEMATOCRIT 37.7 % (39.0-51.0); HEMO FLAGS DIFF FINAL; LYMPH % 33.1 % (9.0-44.0); LYMPHOCYTE # 2.7 TH/MM3 (1.0-4.8); MEAN CELL VOLUME 94.5 FL (80.0-100.0); MEAN CORPUSCULAR HEMOGLOBIN 32.6 PG (27.0-34.0); MEAN CORPUSCULAR HGB CONC 34.5 % (32.0-36.0); MONO % 17.6 % (0.0-8.0); PLATELET COUNT 151 TH/MM3 (150-450); RED BLOOD COUNT 3.99 MIL/MM3 (4.50-5.90); RED CELL DISTRIBUTION WIDTH 12.8 % (11.6-17.2); WHITE BLOOD COUNT 8.1 TH/MM3 (4.0-11.0)
[2017-07-17 05:54] LABS: ALT (GPT) 110 U/L (12-78); ANION GAP 7 MEQ/L (5-15); AST (GOT) 84 U/L (15-37); BICARBONATE 23.9 MEQ/L (21.0-32.0); BLOOD UREA NITROGEN 4 MG/DL (7-18); CHLORIDE 108 MEQ/L (98-107); GLOMERULAR FILTRATION RATE 175 ML/MIN (>89); POTASSIUM 3.9 MEQ/L (3.5-5.1); SODIUM (NA) 139 MEQ/L (136-145)
[2017-07-17 05:57] LABS: ALKALINE PHOSPHATASE 191 U/L (45-117); TOTAL BILIRUBIN ADULT 0.9 MG/DL (0.2-1.0)
[2017-07-17 08:00] VITALS: BP 135/92; PULSE 48; RESP 16; TEMP 96.5; O2SAT 94
[2017-07-17] MEDS: SERTRALINE HCL 100 MG TAB PO SCH (09:29)
--- NOTE | 2017-07-17 10:56 | HHI.GIFU ---
Subjective Remarks Patient is resting in bed, still with RUQ pain, expresses concerns regarding possible cholecystectomy and risk for bleeding. (Sepideh Jain) Objective Vitals I&O Vital Signs Date Time Temp Pulse Resp B/P (MAP) Pulse Ox O2 Delivery O2 Flow Rate FiO2 07/17/17 08:00 96.5 48 16 135/92 (106) 94 07/17/17 00:00 96.4 60 17 121/79 (93) 95 07/16/17 20:00 95.5 59 17 129/87 (101) 95 07/16/17 16:25 97.9 70 20 142/60 (87) 96 07/16/17 12:12 98.2 69 144/66 (92) 96 I/O 07/16/17 07/16/17 07/16/17 07/17/17 07/17/17 07/17/17 07:00 15:00 23:00 07:00 15:00 23:00 Intake Total 1200 ml 340 ml Output Total 4450 ml 800 ml Balance -4450 ml 1200 ml -460 ml Intake Oral 240 ml IV Total 1200 ml 100 ml Output Urine Total 4450 ml 800 ml # Voids 2 Laboratory Laboratory Tests Test 07/17/17 04:50 White Blood Count 8.1 Red Blood Count 3.99 Hemoglobin 13.0 Hematocrit 37.7 Mean Corpuscular Volume 94.5 Mean Corpuscular Hemoglobin 32.6 Mean Corpuscular Hemoglobin Concent 34.5 Red Cell Distribution Width 12.8 Platelet Count 151 Mean Platelet Volume 9.0 Neutrophils (%) (Auto) 46.0 Lymphocytes (%) (Auto) 33.1 Monocytes (%) (Auto) 17.6 Eosinophils (%) (Auto) 2.8 Basophils (%) (Auto) 0.5 Neutrophils # (Auto) 3.7 Lymphocytes # (Auto) 2.7 Monocytes # (Auto) 1.4 Eosinophils # (Auto) 0.2 Basophils # (Auto) 0.0 CBC Comment DIFF FINAL Differential Comment Blood Urea Nitrogen 4 Creatinine 0.51 Random Glucose 106 Total Protein 5.4 Albumin 2.5 Calcium Level 7.9 Alkaline Phosphatase 191 Aspartate Amino Transf (AST/SGOT) 84 Alanine Aminotransferase (ALT/SGPT) 110 Total Bilirubin 0.9 Sodium Level 139 Potassium Level 3.9 Chloride Level 108 Carbon Dioxide Level 23.9 Anion Gap 7 Estimat Glomerular Filtration Rate 175 Date/Time Source Procedure Growth Status 07/13/17 16:00 Urine Clean Catch Urine Culture - Final 50-100,000 CFU/ML MIXED GRAM POSITIVE... Complete Imaging Last Impressions Hepatobiliary Scan Nuclear Medicine 07/16/17 0800 Signed Impressions: Service Date/Time: Sunday, July 16, 2017 10:02 - CONCLUSION: 1. Nonvisualization of the gallbladder concerning for cholecystitis. Baldev Tinoco MD Cholangiopancreatography MRI 07/14/17 0000 Signed Impressions: Service Date/Time: July 21:47 - CONCLUSION: 1. No biliary duct dilatation or stones are seen. 2. Hepatic steatosis. The liver is enlarged. There is mild ascites in the right upper quadrant. Diffuse liver abnormality needs to be suspected. 3. Gallbladder wall thickening. This is nonspecific. It can be seen with hepatic disease. Hayden Murray MD Gall Bladder Ultrasound 07/13/17 0000 Signed Impressions: Service Date/Time: Thursday, July 13, 2017 16:55 - CONCLUSION: Markedly abnormal gallbladder appearance. Hayden Garcia MD Physical Exam HEENT: PERRL; normocephalic; atraumatic; no jaundice. CHEST: CTA CARDIAC: RRR ABDOMEN: Soft, nondistended, RUQ TTP; +hepatomegaly; bowel sounds are present in all four quadrants. EXTREMITIES: No clubbing, cyanosis, or edema. SKIN: Normal; no rash; no jaundice. BIOMED TECH: No focal deficits; alert and oriented times three. (Cristobal,Sepideh ROOFING APPLICATOR) Assessment and Plan Plan ASSESSMENT: - Elevated LFTs, ? Acute hepatitis. 6 day hx of chills, diaphoresis, malaise, RUQ pain, nausea, vomiting, diarrhea. Pt does report history of hepatitis, he believes hepatitis b, but is unsure. His symptoms are more consistent with a acute viral hepatitis though. Denies new meds, new tattoos, new sexual partners. US abdominal (07/13/17)----> Markedly abnormal in appearance with moderately thickened edematous gallbladder wall diffusely. No definite mobile stones. HIDA concerning for cholecystitis, will await delayed imaging AFP 4.2, iron 85, TIBC 178L, sat 47.8, ferritin 1900H. VALERIE neg, ASMA neg. LFTs trending down. Hep C ab reactive, quant & genotype pending - N/V/D, stool studies pending c diff neg - Abnormal imaging of Gallbladder. US as above. HIDA pos, delayed imaging pending RUQ tenderness. GB etiology vs. hepatocellular dz. - RUQ tenderness. Unclear if it is related to GB or hepatitis. - Bandemia, Chills. Fine spotted red rash to trunk. Zosyn. - Thrombocytopenia. ? liverdz - Abn. U/A, gram pos ronald prob contamination 07/15/17-- hep c ab reactive, will get quant & genotype 07/16/17 -- viral load & genotype pending. HIDA pos. d/w GS, if surgery would need PLT. pt now admits heavy drinking 12pk nightly, d/w primary PA 07/17/17-- viral load & genotype pending. Delayed imaging showed cholecystitis , patient very concern regarding risk of bleeding associated with surgery LFTs trending down PLAN: - NPO pending GS eval. - await GS f/u - await hep C quant & genotype - Supportive care - Further recommendations to follow based on results of above - Pt seen and examined by Dr. Burns and myself and this note is written on his behalf (Sepideh Jain) Sepideh Jain Jul 17, 2017 10:56 Alanna Burns MD Jul 17, 2017 13:59
[2017-07-17] MEDS: PANTOPRAZOLE SODIUM 40 MG VIAL IV PUSH SCH ×2 (11:04→22:36)
[2017-07-17] MEDS: SODIUM CHLOR 0.9% 1000 ML INJ 1,000 ML IV SCH (11:08)
[2017-07-17 12:00] VITALS: BP 152/99; PULSE 55; RESP 16; TEMP 96.8; O2SAT 97
[2017-07-17] MEDS ORDERED: LIDOCAINE HCL 1% PF 5 ML AMPULE OTHER ONE (12:00)
[2017-07-17] MEDS ORDERED: DEXAMETHASONE SOD PHOS 4 MG/ML VIAL IV ONE (12:00)
[2017-07-17] MEDS ORDERED: ROCURONIUM INJ 50 MG/5 ML SYRINGE IV PUSH ONE (12:00)
[2017-07-17] MEDS ORDERED: LACTATED RINGER'S 1000 ML INJ 1,000 ML IV ONE (12:00)
[2017-07-17] MEDS ORDERED: ONDANSETRON HCL 4 MG/2 ML VIAL IV PUSH ONE (12:00)
[2017-07-17] MEDS ORDERED: PROPOFOL 200 MG/20 ML AMP IV ONE (12:00)
[2017-07-17] MEDS ORDERED: NEOSTIGMINE 3 MG/3 ML SYR IV ONE (12:00)
[2017-07-17] MEDS ORDERED: GLYCOPYRROLATE 1 MG/5 ML SYRINGE IV PUSH ONE (12:00)
--- NOTE | 2017-07-17 12:40 | HHI.PR ---
Subjective Remarks Follow-up right upper quadrant abdominal pain Abdominal pain still present, afebrile, mildly icteric. Still nauseated but no vomiting. No diarrhea. Objective Vitals Vital Signs Date Time Temp Pulse Resp B/P (MAP) Pulse Ox O2 Delivery O2 Flow Rate FiO2 07/17/17 12:00 96.8 55 16 152/99 (116) 97 07/17/17 08:00 96.5 48 16 135/92 (106) 94 07/17/17 00:00 96.4 60 17 121/79 (93) 95 07/16/17 20:00 95.5 59 17 129/87 (101) 95 07/16/17 16:25 97.9 70 20 142/60 (87) 96 I/O 07/16/17 07/16/17 07/16/17 07/17/17 07/17/17 07/17/17 07:00 15:00 23:00 07:00 15:00 23:00 Intake Total 1200 ml 340 ml Output Total 4450 ml 800 ml Balance -4450 ml 1200 ml -460 ml Intake Oral 240 ml IV Total 1200 ml 100 ml Output Urine Total 4450 ml 800 ml # Voids 2 Result Diagram: 07/17/17 0450 07/17/17 0450 Objective Remarks Not in distress Mildly icteric sclera Regular rate and rhythm Clear breath sounds Mild right upper quadrant tenderness Trace edema Alert awake and oriented 3, no focal deficits A/P Problem List: (1) Cholecystitis ICD Code: K81.9 - Cholecystitis, unspecified (2) Elevated LFTs ICD Code: R79.89 - Other specified abnormal findings of blood chemistry Status: Acute (3) Upper GI bleed ICD Code: K92.2 - Gastrointestinal hemorrhage, unspecified (4) Bandemia ICD Code: D72.825 - Bandemia Status: Acute (5) UTI (urinary tract infection) ICD Code: N39.0 - Urinary tract infection, site not specified (6) Thrombocytopenia ICD Code: D69.6 - Thrombocytopenia, unspecified (7) Hypokalemia ICD Code: E87.6 - Hypokalemia (8) Hyponatremia ICD Code: E87.1 - Hypo-osmolality and hyponatremia (9) Lower extremity pain, anterior ICD Code: M79.606 - Pain in leg, unspecified (10) Depression ICD Code: F32.9 - Major depressive disorder, single episode, unspecified Status: Chronic (11) Tobacco abuse ICD Code: Z72.0 - Tobacco use Assessment and Plan 46 y/o male who presented to ED on 07/13/17 for evaluation of leg pain and was found to have symptoms and imaging c/w cholecystitis. Acute hepatitis versus cholecystitis -HIDA scan consistent with cholecystitis. General surgery and gastroenterology following. Hepatitis C reactive, awaiting hepatitis panel. For possible laparoscopic cholecystectomy today. Continue pain control and antibiotics. Continue Zosyn Possible upper GI bleeding with N/V: patient reports red emesis and black stool - Hemoccult negative. GI following, continue Protonix. Monitor hemoglobin. UTI, resolved. -On Zosyn Thrombocytopenia secondary to hepatitis versus liver cirrhosis - history of hepatitis and possible liver cirrhosis - suspect may be secondary to liver disease. - monitor CBC Hypokalemia: K+ 3.4 -Replace as needed Hyponatremia: -Likely from cirrhosis, monitor, improving. Lower extremity pain, bilateral - suspect patient may have some degree of PAD - recommend follow up with PCP and EMMANUEL as an outpatient Depression - resume home Sertraline Tobacco abuse - counselled extensively regarding cessation - patient receptive to counseling DVT prophylaxis- SCDs/TEDs; avoid chemoprophylaxis with thrombocytopenia and possible upcoming procedure Mabel Suazo MD Jul 17, 2017 12:40
--- NOTE | 2017-07-17 13:02 | HHI.PR ---
Subjective Subjective Notes power press tender RUQ, nervous about surgery Ready to make a lifestyle change. Objective Vitals/I&O Vital Signs Date Time Temp Pulse Resp B/P (MAP) Pulse Ox O2 Delivery O2 Flow Rate FiO2 07/17/17 12:00 96.8 55 16 152/99 (116) 97 07/13/17 19:58 Room Air Labs Laboratory Tests Test 07/17/17 04:50 White Blood Count 8.1 Red Blood Count 3.99 Hemoglobin 13.0 Hematocrit 37.7 Mean Corpuscular Volume 94.5 Mean Corpuscular Hemoglobin 32.6 Mean Corpuscular Hemoglobin Concent 34.5 Red Cell Distribution Width 12.8 Platelet Count 151 Mean Platelet Volume 9.0 Neutrophils (%) (Auto) 46.0 Lymphocytes (%) (Auto) 33.1 Monocytes (%) (Auto) 17.6 Eosinophils (%) (Auto) 2.8 Basophils (%) (Auto) 0.5 Neutrophils # (Auto) 3.7 Lymphocytes # (Auto) 2.7 Monocytes # (Auto) 1.4 Eosinophils # (Auto) 0.2 Basophils # (Auto) 0.0 CBC Comment DIFF FINAL Differential Comment Blood Urea Nitrogen 4 Creatinine 0.51 Random Glucose 106 Total Protein 5.4 Albumin 2.5 Calcium Level 7.9 Alkaline Phosphatase 191 Aspartate Amino Transf (AST/SGOT) 84 Alanine Aminotransferase (ALT/SGPT) 110 Total Bilirubin 0.9 Sodium Level 139 Potassium Level 3.9 Chloride Level 108 Carbon Dioxide Level 23.9 Anion Gap 7 Estimat Glomerular Filtration Rate 175 Date/Time Source Procedure Growth Status 07/13/17 16:00 Urine Clean Catch Urine Culture - Final 50-100,000 CFU/ML MIXED GRAM POSITIVE... Complete Radiology Last 48 hours Impressions Gall Bladder Ultrasound 07/13/17 0000 Signed Impressions: Service Date/Time: Thursday, July 13, 2017 16:55 - CONCLUSION: Markedly abnormal gallbladder appearance. Hayden Garcia MD Abdomen: Other (tender R subcostal) A/P Assessment and Plan Abnormal GB on US, No stones or ductal dilatation. HIDA non visualized GB. Hep C. Alcholic liver disease. Normal PT INR, Platelets now 131,000. I D/W patient and friends rationale behind offering Lap edy, possible open. We discussed risks of bleeding, infection, injury to liver, bile ducts, intestine, DVT/PE and expectations for recovery. We discussed non operative management with abx + - drainage. He wishes to proceed with surgery today. I called OR. They gave me approximate start time 3pm. I communicated this to the patient. Jose Holcomb MD Jul 17, 2017 13:02
[2017-07-17] MEDS ORDERED: BUPIVACAINE/EPINEPHRINE 0.25% 50 ML VIAL ONE (15:50)
[2017-07-17 16:00] VITALS: BP 165/87; PULSE 49; RESP 16; TEMP 95.8; O2SAT 95
--- NOTE | 2017-07-17 17:07 | PD.OP ---
Operative Report Date of Surgery: Jul 17, 2017 Preoperative Diagnosis: cholecystitis and hepatitis C Postoperative Diagnosis: same Procedure: lap edy lap core needle liver biopsy Anesthesia: general Surgeon: Jose Holcomb Medical Staff Director(s): staff Operation and Findings: Gb with edema in the wall to pathology liver core biopsy to pathology EBL less than 2ml. Jose Holcomb MD Jul 17, 2017 17:07
[2017-07-17] MEDS ORDERED: Post-op Orders (for Pharmacy) MISC XX ONE (17:15)
[2017-07-17] MEDS ORDERED: SODIUM CHLORIDE 0.9% FLUSH 10 ML FLUSH IV FLUSH PRN (17:15)
[2017-07-17] MEDS: LACTATED RINGER'S 1000 ML INJ 1,000 ML IV SCH (17:35)
[2017-07-17] MEDS ORDERED: DO NOT ADM ANY ANTICOAGULANT DRUGS PRN (17:45)
[2017-07-17] MEDS: HYDROmorphone HCL 2 MG TAB PO PRN ×2 (18:28→22:34)
[2017-07-17 19:49] LABS: HEP B DNA R1 LESS THAN 20 IU/mL (0-19); HEP B DNA R2 LESS THAN 1.30 (<1.30)
[2017-07-17 20:00] VITALS: BP 140/89; PULSE 57; RESP 17; TEMP 96; O2SAT 96
--- NOTE | 2017-07-17 20:17 | MP ---
cc: HAN EUCEDA M.D. DATE OF SURGERY: 07/17/2017. PREOPERATIVE DIAGNOSIS: 1. Cholecystitis. 2. Hepatitis C. POSTOPERATIVE DIAGNOSES: 1. Cholecystitis. 2. Hepatitis C. OPERATIVE PROCEDURE PERFORMED: Laparoscopic cholecystectomy, laparoscopic core needle biopsy of the liver. SURGEON: Dr. Han Euceda ANESTHESIA: General. INDICATIONS FOR THE PROCEDURE: This is a 46-year-old gentleman who has been evaluated for right upper abdominal pain. Ultrasound showed a grossly abnormal- appearing gallbladder. MRCP was negative for biliary ductal obstruction. HIDA scan demonstrated nonvisualization of the gallbladder. Recommendations were made for laparoscopic cholecystectomy. Intraoperative liver biopsy is indicated due to history of hepatitis C. INTRAOPERATIVE FINDINGS: 1. Gallbladder removed and sent pathology. 2. Two liver biopsy cores removed and sent to pathology. ESTIMATED BLOOD LOSS: Estimated blood loss less than 2 mL. DESCRIPTION OF THE PROCEDURE IN DETAIL: The patient was identified as Douglas Chopra and taken to the operating room and placed in the supine position. Sequential compression devices were placed on bilateral lower extremities. Following induction of adequate general endotracheal anesthesia, the patient's abdomen was prepped and draped in the usual sterile fashion with Betadine. A time-out procedure was performed. Following completion of the time-out procedure everyone's satisfaction within the room, local anesthetic was placed in a supraumbilical position. A supraumbilical 2-3 cm vertical incision was carried out with scalpel and dissection was continued posteriorly to the level of the midline fascia. The base of the umbilicus was retracted anteriorly. Supraumbilical midline fascia was incised with scalpel allowing for entry into the peritoneal cavity with a hemostat. The surgeon's finger confirmed intraperitoneal location. The [employer] balloon Wing trocar was placed in the peritoneal cavity, its balloon inflated to C02 insufflation to level of 15 mmHg ensued. The patient was placed in a reverse Trendelenburg position and turned to left and two upper abdominal 5 mm trocars were placed in the peritoneal cavity direct laparoscopic view after incision in the skin with a scalpel. The gallbladder was immediately identified. It did not have inflammatory adhesions; however, did have edema in its wall. The gallbladder was removed from the gallbladder fossa in a dome-down technique using the harmonic scalpel. Cystic arterial branch divided with the harmonic scalpel. The cystic duct was isolated from surrounding tissues, ligated proximally and distally with 0-PDS Endoloops and divided between the Endoloops and the gallbladder removed through the supraumbilical fascial port incision site and passed off the field for pathologic evaluation. The gallbladder fossa was hemostatic. The cystic duct ligature remained intact. The cystic arterial stump was hemostatic. Attention was then turned to liver core biopsy. Local anesthetic was placed the right upper quadrant and a small stab incision made with a scalpel. The Biopty Gun was used to take two liver course. Hemostasis was controlled with the harmonic scalpel. The liver cores were sent to pathology for permanent section. Irrigation ensued in the right upper quadrant and it was suctioned out. There was no bilious or bloody drainage. There was very minimal ascites. The trocars were removed under direct visualization. There was no evidence of bleeding from trocar sites. The remaining 5 mL of local anesthetic was placed in the periumbilical area. The supraumbilical fascial incision was closed with interrupted [id number] Vicryl sutures of #0 The wounds were irrigated copiously with saline. Skin incisions were approximated with 4-0 Monocryl subcuticular sutures. Dressings were applied with Mastisol and half-inch brown Steri-Strips. The patient tolerated procedure without apparent complication. Sponge, needle and instrument counts were correct at the end of the case. MD ANIKET De Oliveira/THOMAS /5:04 PM /8:05 PM
[2017-07-17] MEDS ORDERED: SODIUM CHLORIDE 0.9% FLUSH 10 ML FLUSH IV FLUSH SCH (21:00)
[2017-07-18] VITALS: BP 128/81; PULSE 60; RESP 17; TEMP 96.8; O2SAT 96
[2017-07-18] MEDS: PIPERACIL-TAZO 4.5 GM PREMIX 100 ML IV SCH ×3 (00:23→10:47)
[2017-07-18] MEDS: LACTATED RINGER'S 1000 ML INJ 1,000 ML IV SCH (01:06)
[2017-07-18] MEDS: HYDROmorphone HCL 2 MG TAB PO PRN ×4 (02:35→15:11)
[2017-07-18 08:00] VITALS: BP 135/97; PULSE 70; RESP 17; TEMP 95.8; O2SAT 94
[2017-07-18] MEDS: SERTRALINE HCL 100 MG TAB PO SCH (08:41)
[2017-07-18 08:55] LABS: INDIRECT BILIRUBIN 0.4 MG/DL (0.0-0.8)
--- NOTE | 2017-07-18 09:10 | HHI.GIFU ---
Subjective Remarks Resting in bed. States he is feeling much better and no longer feels sick. Tolerating diet. No complaints. (Eli Wilkinson) Objective Vitals I&O Vital Signs Date Time Temp Pulse Resp B/P (MAP) Pulse Ox O2 Delivery O2 Flow Rate FiO2 07/18/17 08:00 95.8 70 17 135/97 (110) 94 07/18/17 03:35 16 07/18/17 00:00 96.8 60 17 128/81 (97) 96 07/17/17 20:00 96.0 57 17 140/89 (106) 96 07/17/17 17:45 98.3 52 16 153/88 (109) 98 Room Air 07/17/17 17:30 56 16 151/89 (109) 96 Nasal Cannula 2 07/17/17 17:15 62 16 133/78 (96) 94 Nasal Cannula 2 07/17/17 17:08 98.0 76 16 146/91 (109) 94 Nasal Cannula 2 07/17/17 16:00 95.8 49 16 165/87 (113) 95 07/17/17 12:00 96.8 55 16 152/99 (116) 97 I/O 07/17/17 07/17/17 07/17/17 07/18/17 07/18/17 07/18/17 07:00 15:00 23:00 07:00 15:00 23:00 Intake Total 340 ml 1000 ml 400 ml 340 ml Output Total 800 ml 1605 ml Balance -460 ml 1000 ml -1205 ml 340 ml Intake Oral 240 ml 0 ml 240 ml IV Total 100 ml 1000 ml 100 ml Other 400 ml Output Urine Total 800 ml 1600 ml Estimated Blood Loss 5 ml # Voids 2 2 # Bowel Movements 2 Laboratory Laboratory Tests Test 07/18/17 07:22 Total Bilirubin 1.0 Direct Bilirubin 0.6 Indirect Bilirubin 0.4 Aspartate Amino Transf (AST/SGOT) 60 Alanine Aminotransferase (ALT/SGPT) 106 Alkaline Phosphatase 192 Total Protein 6.4 Albumin 2.8 Date/Time Source Procedure Growth Status 07/13/17 16:00 Urine Clean Catch Urine Culture - Final 50-100,000 CFU/ML MIXED GRAM POSITIVE... Complete Imaging Last Impressions Hepatobiliary Scan Nuclear Medicine 07/16/17 0800 Signed Impressions: Service Date/Time: Sunday, July 16, 2017 10:02 - CONCLUSION: 1. Nonvisualization of the gallbladder concerning for cholecystitis. Baldev Tinoco MD ADDENDUM: 24-hour delayed imaging is provided. The gallbladder is not identified. The exam is concern for cholecystitis. Baldev Tinoco MD Cholangiopancreatography MRI 07/14/17 0000 Signed Impressions: Service Date/Time: July 21:47 - CONCLUSION: 1. No biliary duct dilatation or stones are seen. 2. Hepatic steatosis. The liver is enlarged. There is mild ascites in the right upper quadrant. Diffuse liver abnormality needs to be suspected. 3. Gallbladder wall thickening. This is nonspecific. It can be seen with hepatic disease. Hayden Murray MD Gall Bladder Ultrasound 07/13/17 0000 Signed Impressions: Service Date/Time: Thursday, July 13, 2017 16:55 - CONCLUSION: Markedly abnormal gallbladder appearance. Hayden Garcia MD Physical Exam HEENT: Normocephalic; atraumatic CHEST: CTA CARDIAC: RRR ABDOMEN: Soft, nondistended, nontender; bowel sounds are present in all four quadrants. Steristrips d/i EXTREMITIES: No clubbing, cyanosis, or edema. SKIN: Normal; no rash; no jaundice. CAPTAIN/CHECK [employer]MAN: No focal deficits; alert and oriented times three. (Eli Wilkinson) Assessment and Plan Plan ASSESSMENT: - Elevated LFTs, with hx of chills, diaphoresis, malaise, RUQ pain, nausea, vomiting, diarrhea. Pt does report history of hepatitis, he believes hepatitis b, but is unsure. He does not have an active hepatitis B infection, does have antibodies for HCV, genotype and viral load pending. US abdominal (07/13/17)----> Markedly abnormal in appearance with moderately thickened edematous gallbladder wall diffusely. No definite mobile stones. AFP 4.2, iron 85, TIBC 178L, sat 47.8, ferritin 1900H. VALERIE neg, AMA negative , ASMA neg. HIDA (07/16/17)----> Nonvisualization of the GB concerning for cholecystitis, 24 delayed imaging is provided. The gallbladder is not identified. The exam is concern for cholecystitis. S/P Lap. Ruby and liver biopsy (07/17/17). Pathology pending. Clinically, feeling much better, tolerating diet. No n/v/pain. LFTs are trending down - Cholecystitis. S/P Lap. Ruby. with GS. Zosyn - N/V/D, stool studies pending C diff neg. Improved - Thrombocytopenia. ? liverdz - Abn. U/A, gram pos ronald prob contamination PLAN: - KAMRAN - Await pathology from liver biopsy - Await hep C quant & genotype - Okay to d/c home from GI standpoint - FU ANATOLY 2 weeks - Pt seen and examined by Dr. Plasencia and myself and this note is written on his behalf (Eli Wilkinson) Physician Comments Seen and examined with TEQUILA< doing better after cholecystectomy. GI fu after dc for Hep C carballo. Thank you (Nat Plasencia MD) Eli Wilkinson Jul 18, 2017 09:10 Nat Plasencia MD Jul 18, 2017 12:35
--- NOTE | 2017-07-18 10:09 | HHI.PR ---
Subjective Subjective Notes Resting in bed No issues overnight Tolerated dinner Objective Vitals/I&O Vital Signs Date Time Temp Pulse Resp B/P (MAP) Pulse Ox O2 Delivery O2 Flow Rate FiO2 07/18/17 08:00 95.8 70 17 135/97 (110) 94 07/17/17 17:45 Room Air 07/17/17 17:30 2 Labs Laboratory Tests Test 07/18/17 07:22 Total Bilirubin 1.0 Direct Bilirubin 0.6 Indirect Bilirubin 0.4 Aspartate Amino Transf (AST/SGOT) 60 Alanine Aminotransferase (ALT/SGPT) 106 Alkaline Phosphatase 192 Total Protein 6.4 Albumin 2.8 Date/Time Source Procedure Growth Status 07/13/17 16:00 Urine Clean Catch Urine Culture - Final 50-100,000 CFU/ML MIXED GRAM POSITIVE... Complete Radiology Last 48 hours Impressions Gall Bladder Ultrasound 07/13/17 0000 Signed Impressions: Service Date/Time: Thursday, July 13, 2017 16:55 - CONCLUSION: Markedly abnormal gallbladder appearance. Hayden Garcia MD Cardiovascular: Regular Lungs: Clear Abdomen: Non-distended, Other (lap sites c/d/i with steri strips in place ), Post-op tenderness Extremities: No edema A/P Assessment and Plan 46 year old male with elevated liver enzymes; RUQ tenderness -Hepatitis panel + hep C---GI following -POD1 lap edy; liver bx -Regular diet -GS clear for DC -Follow up with Dr. Holcomb in 7-10 days Citlaly Barr Jul 18, 2017 10:09
[2017-07-18] MEDS: PANTOPRAZOLE SODIUM 40 MG VIAL IV PUSH SCH (10:47)
[2017-07-18 12:00] VITALS: BP 132/84; PULSE 71; RESP 17; TEMP 95.5; O2SAT 96
[2017-07-18] MEDS ORDERED: LEVO750T3 PO (13:12)
--- NOTE | 2017-07-18 13:14 | HHI.DS ---
Discharge Summary Admission Date Jul 16, 2017 at 08:18 Discharge Date: Jul 18, 2017 Admitting Diagnosis Bandemia/Elevated LFT's/Inflammed Gallbladder (1) Cholecystitis ICD Code: K81.9 - Cholecystitis, unspecified (2) Elevated LFTs ICD Code: R79.89 - Other specified abnormal findings of blood chemistry Status: Acute (3) Upper GI bleed ICD Code: K92.2 - Gastrointestinal hemorrhage, unspecified (4) Bandemia ICD Code: D72.825 - Bandemia Status: Acute (5) UTI (urinary tract infection) ICD Code: N39.0 - Urinary tract infection, site not specified (6) Thrombocytopenia ICD Code: D69.6 - Thrombocytopenia, unspecified (7) Hypokalemia ICD Code: E87.6 - Hypokalemia (8) Hyponatremia ICD Code: E87.1 - Hypo-osmolality and hyponatremia (9) Lower extremity pain, anterior ICD Code: M79.606 - Pain in leg, unspecified (10) Depression ICD Code: F32.9 - Major depressive disorder, single episode, unspecified Status: Chronic (11) Tobacco abuse ICD Code: Z72.0 - Tobacco use Procedures see attached Brief History - From Admission The patient is seen in the CDU. He states that he came into the ED for evaluation of severe bilateral lower extremity pain: pain goes from knees down bones and into ankles. The patient reports pain has been present since Tuesday. He denies any trauma. Chills, cold, diaphoretic started Tuesday and was present on ambulance. Denies any measured temperatures. Nausea with vomiting 10 - 12 times per day since Tuesday. Denies black colored emesis. He reports red emesis. Diarrhea started 3 days ago - black in color. Denies taking blood thinners or aspirin. He says he took Advil PM last night only. He has also been treating himself with Nyquil. Denies dysuria. He reports dark tea-colored urine. Patient states he's been having right upper abdominal pain. Denies chest pain, shortness of breath, or dizziness. CBC/BMP: 07/17/17 0450 07/17/17 0450 Significant Findings Laboratory Tests Test 07/16/17 06:10 07/17/17 04:50 07/18/17 07:22 Blood Urea Nitrogen 5 MG/DL (7-18) 4 MG/DL (7-18) Creatinine 0.54 MG/DL (0.60-1.30) 0.51 MG/DL (0.60-1.30) Random Glucose 120 MG/DL (74-106) Total Protein 5.3 GM/DL (6.4-8.2) 5.4 GM/DL (6.4-8.2) Albumin 2.4 GM/DL (3.4-5.0) 2.5 GM/DL (3.4-5.0) 2.8 GM/DL (3.4-5.0) Calcium Level 7.6 MG/DL (8.5-10.1) 7.9 MG/DL (8.5-10.1) Alkaline Phosphatase 184 U/L (45-117) 191 U/L (45-117) 192 U/L (45-117) Aspartate Amino Transf (AST/SGOT) 101 U/L (15-37) 84 U/L (15-37) 60 U/L (15-37) Alanine Aminotransferase (ALT/SGPT) 133 U/L (12-78) 110 U/L (12-78) 106 U/L (12-78) Total Bilirubin 1.2 MG/DL (0.2-1.0) Potassium Level 3.1 MEQ/L (3.5-5.1) Red Blood Count 3.99 MIL/MM3 (4.50-5.90) Hematocrit 37.7 % (39.0-51.0) Monocytes (%) (Auto) 17.6 % (0.0-8.0) Monocytes # (Auto) 1.4 TH/MM3 (0-0.9) Chloride Level 108 MEQ/L (98-107) Direct Bilirubin 0.6 MG/DL (0.0-0.2) Imaging Last Impressions Hepatobiliary Scan Nuclear Medicine 07/16/17 0800 Signed Impressions: Service Date/Time: Sunday, July 16, 2017 10:02 - CONCLUSION: 1. Nonvisualization of the gallbladder concerning for cholecystitis. Baldev Tinoco MD ADDENDUM: 24-hour delayed imaging is provided. The gallbladder is not identified. The exam is concern for cholecystitis. Baldev Tinoco MD Cholangiopancreatography MRI 07/14/17 0000 Signed Impressions: Service Date/Time: July 21:47 - CONCLUSION: 1. No biliary duct dilatation or stones are seen. 2. Hepatic steatosis. The liver is enlarged. There is mild ascites in the right upper quadrant. Diffuse liver abnormality needs to be suspected. 3. Gallbladder wall thickening. This is nonspecific. It can be seen with hepatic disease. Hayden Murray MD Gall Bladder Ultrasound 07/13/17 0000 Signed Impressions: Service Date/Time: Thursday, July 13, 2017 16:55 - CONCLUSION: Markedly abnormal gallbladder appearance. Hayden Garcia MD PE at Discharge Not in distress Mildly icteric sclera Regular rate and rhythm Clear breath sounds Mild right upper quadrant tenderness Trace edema Alert awake and oriented 3, no focal deficits Pt update on day of discharge Follow up right UQ tenderness and lap edy. Patient seen and examined lying in bed comfortably. States that pain minimal. States he feels much better, expressed relief. Denies any recent fever, chills, cough, shortness of breath, nausea, vomiting, diarrhea. Patient tolerating PO intake. Ambulating well. Eager to go home. Hospital Course 46 y/o male who presented to ED on 07/13/17 for evaluation of leg pain and was found to have symptoms and imaging c/w cholecystitis. Elevated LFTs with N/V/D and RUQ abdominal pain. Labs on presentation Tbili 3.5, AST 319, ALT 300, Alk Phos 158. Low acetaminophen level. Hx of hepatitis B or C. Gallbladder ultrasound showing markedly abnormal gallbladder appearance with moderately thickened diffusely edematous gallbladder wall. No definite mobile stones. General surgery followed patient throughout hospital stay. Pain controlled with IV Dilaudid prn, and IV zofran prn nausea/vomiting. Hepatitis C reactive. Awaiting hepatitis panel results. GI consulted and followed patient, follow up in office in 2 weeks for bx results and hep c quant and genotype. Stable HH on discharge. Urine culture growing contaminants. Started on antibiotics with IV Zosyn 4.5 grams q6h IV to cover gall bladder and UTI. Given Levaquin rx at discharge. Thrombocytopenia - history of hepatitis and possible liver cirrhosis. Platelet count 61,000 on admission slightly improved, platelets 73K. Tobacco and alcohol abuse, counselled on cessation. Patient expressing motivation to change lifestyle habits. Pt Condition on Discharge: Stable Discharge Disposition: Discharge Home Discharge Time: > 30 minutes Discharge Instructions DIET: Follow Instructions for: Liver Disease Diet Speech Therapy-Diet Recommends: Regular Activities you can perform: Regular-No Restrictions Follow up Referrals: Gastroenterology - 2 Weeks @ [facility] PCP Follow-up - 1 Week Surgical - 10 Days with Jose Holcomb MD New Medications: Levofloxacin (Levofloxacin) 750 Mg Tablet 750 MG PO DAILY for Infection for 7 Days, #7 TAB 0 Refills Continued Medications: Sertraline (Sertraline) 100 Mg Tab 100 MG PO DAILY, #30 TAB 0 Refills Sarah Swain Jul 18, 2017 13:14
[2017-07-20 11:53] LABS: HCV RNA PCR IU/ML 1340000 IU/mL (0-14); HCV RNA PCR LOGIU/ML 6.13 (0-1.18)
[2017-07-21 11:51] LABS: HEPATITIS C RNA GENOTYPE 1b (NOT DETECTD)
== END 2017-07-18 16:32 | disposition home or self-care (01) | DRG 418 ==
LOC: NEPD 13:44 → NEDA 18:23 → NEPGCP 20:55 → OBSVTOIN 07-16 08:18 → N07B 07-16 17:52
PROVIDERS: ADMIT Hospitalist; ATTEND Hospitalist
PROC: 0FB04ZX Excision of Liver, Percutaneous Endoscopic Approach, Diagnostic (ICD-10-PCS; 2017-07-17)
PROC: 0FT44ZZ Resection of Gallbladder, Percutaneous Endoscopic Approach (ICD-10-PCS; principal; 2017-07-17 15:57)
DX: K81.9 Cholecystitis, unspecified (principal); E87.1 Hypo-osmolality and hyponatremia; D69.6 Thrombocytopenia, unspecified; K92.2 Gastrointestinal hemorrhage, unspecified; B19.20 Unspecified viral hepatitis C without hepatic coma; F10.10 Alcohol abuse, uncomplicated; D72.825 Bandemia; E87.6 Hypokalemia; F32.9 Major depressive disorder, single episode, unspecified; R21 Rash and other nonspecific skin eruption; F17.210 Nicotine dependence, cigarettes, uncomplicated; M79.605 Pain in left leg; M79.604 Pain in right leg; Z23 Encounter for immunization; Z85.47 Personal history of malignant neoplasm of testis
CPT/HCPCS: 74183; 76377; 76705; 78226; 80053; 80074; 80076; 80307; 81001; 82103; 82105; 82390; 82728; 83520; 83540; 83550; 83605; 83690; 85007; 85014; 85018; 85025; 85027; 85610; 86038; 86255; 87086; 87350; 87493; 87517; 87522; 87902; 88304; 88307; 88312; 88313; 90686; 90732; 96361; 96365; 96366; 96372; 96375; 96376; A9537; A9579; C9113; G0378; J1100; J1170; J1885; J2405; J2543; J2710; J3010; J3480; J7030; J7120; Q2038